=== PATIENT | female | born 1955 | race Two or more races ===

== ENCOUNTER → 2021-01-27 | Day surgery (SDC) | payer OTHER ==
[2021-01-25 10:23] LABS: Basophils # (auto) 0.1 10 ^3/uL (0-0.2); Basophils % (auto) 0.8 % (0.0-2.0); Eosinophils # (auto) 0.2 10 ^3/uL (0-0.8); Eosinophils % (auto) 2.8 % (0.0-7.0); Hematocrit 40.9 % (36.0-46.0); Hemoglobin 13.8 g/dL (12.2-16.2); Lymphocytes # (auto) 1.8 10 ^3/uL (0.4-5.4); Lymphocytes % (auto) 22.6 % (10.0-50.0); Mean Corpuscular Hemoglobin 29.6 pg (28.0-32.0); Mean Corpuscular Hgb Conc. 33.8 g/dL (32.0-36.0); Mean Corpuscular Volume 87.4 fL (80.0-100.0); Monocytes # (auto) 0.7 10 ^3/uL (0-1.3); Monocytes % (auto) 8.9 % (0.0-12.0); Neutrophils # (auto) 5.1 10 ^3/uL (1.6-8.6); Neutrophils % (auto) 64.9 % (37.0-80.0); Red Blood Cells 4.68 10^6/uL (4.0-5.20); Red Cell Distribution Width 13.7 % (11.8-14.3); White Blood Cell 7.8 10^3/uL (4.4-10.8)
[2021-01-25 11:26] LABS: Calcium 8.8 mg/dL (8.5-10.1); Potassium 4.3 mmol/L (3.5-5.1)
[2021-01-25 11:31] LABS: Albumin 3.5 g/dL (3.4-5.0); BUN/Creatinine Ratio 21.2; Bilirubin, Total 0.4 mg/dL (0.2-1.0); Total Protein 7.3 g/dL (6.4-8.2)
[~2021-01-27] VITALS: Ht 180.3 cm; Wt 109.8 kg
[~2021-01-27] MED LIST: FAMO20TA10 PO
[2021-01-27] MEDS: fentaNYL CITRATE 100 MCG/2 ML VL ONE ×3 (13:39→13:45)
[2021-01-27] MEDS: MIDAZOLAM HCL 5 MG/ML-1ML VIAL ONE ×4 (13:39→13:52)
[2021-01-27] MEDS: diphenhdrAMINE HCL 50 MG/1 ML VL ONE ×2 (13:39→13:45)
[2021-01-27 15:00] VITALS: BP 133/67
== END | disposition home or self-care (01) ==
LOC: GI 12:31
PROVIDERS: ATTEND Internal Medicine Gastroenterology
DX: R19.4 Change in bowel habit (principal); D12.2 Benign neoplasm of ascending colon; K57.30 Diverticulosis of large intestine without perforation or abscess without bleeding; K64.8 Other hemorrhoids; K21.9 Gastro-esophageal reflux disease without esophagitis; M62.89 Other specified disorders of muscle; Z87.891 Personal history of nicotine dependence; Z90.89 Acquired absence of other organs; Z98.890 Other specified postprocedural states; Z88.0 Allergy status to penicillin
CPT/HCPCS: 36415; 45385; 80053; 85025; 88305; J1200; J2250; J3010; J7030; U0003; 99152

== ENCOUNTER → 2024-04-02 | Outpatient (CLI) | payer BC ==
[2024-04-02 07:24] LABS: Basophils # (auto) 0.1 10 ^3/uL (0-0.2); Basophils % (auto) 0.9 % (0.0-2.0); Eosinophils # (auto) 0.2 10 ^3/uL (0-0.8); Eosinophils % (auto) 3.2 % (0.0-7.0); Hematocrit 43.7 % (36.0-46.0); Hemoglobin 14.3 g/dL (12.2-16.2); Lymphocytes # (auto) 1.5 10 ^3/uL (0.4-5.4); Lymphocytes % (auto) 21.6 % (10.0-50.0); Mean Corpuscular Hgb Conc. 32.7 g/dL (32.0-36.0); Mean Corpuscular Volume 85.6 fL (80.0-100.0); Monocytes # (auto) 0.7 10 ^3/uL (0-1.3); Monocytes % (auto) 9.7 % (0.0-12.0); Neutrophils # (auto) 4.5 10 ^3/uL (1.6-8.6); Neutrophils % (auto) 64.6 % (37.0-80.0); Platelet Count (auto) 282 10^3/uL (140-450); Red Cell Distribution Width 14.9 % (11.8-14.3)
[2024-04-02 07:34] LABS: Alanine Aminotransferase 18 U/L (7-40); Alkaline Phosphatase 75 U/L (46-116); Anion Gap 8 (5-15); BUN/Creatinine Ratio 12.4 (10.0-20.0); Blood Urea Nitrogen 11 mg/dL (9-23); Carbon Dioxide 27 mmol/L (20-31); Chloride 106 mmol/L (98-107); Glucose 103 mg/dL (74-106); Potassium 4.1 mmol/L (3.5-5.1); Sodium 141 mmol/L (136-145)
[2024-04-02 07:35] LABS: Albumin 4.6 g/dL (3.2-4.8); Aspartate Aminotransferase 17 U/L (13-40)
[2024-04-02 07:36] LABS: Bilirubin, Total 0.7 mg/dL (0.2-1.0); Total Protein 7.5 g/dL (5.7-8.2)
[2024-04-02 07:38] LABS: Calcium 10.5 mg/dL (8.7-10.4)
[2024-04-02 07:52] LABS: Triglycerides 107 mg/dL (< 150)
[2024-04-02 07:54] LABS: Cholesterol 162 mg/dL (< 200)
[2024-04-02 07:55] LABS: HDL Cholesterol 43 mg/dL (40-59)
[2024-04-02 08:09] LABS: LDL Cholesterol 114 mg/dL (< 100)
== END | disposition home or self-care (01) ==
LOC: LAB 06:25
PROVIDERS: ATTEND Nurse Practitioner Family
DX: Z00.01 Encounter for general adult medical examination with abnormal findings (principal); I10 Essential (primary) hypertension; E66.9 Obesity, unspecified
CPT/HCPCS: 36415; 80053; 80061; 82306; 84443; 85025

== ENCOUNTER 2024-05-18 08:56 | Inpatient (IN) | payer BC, OTHER ==
[~2024-05-18] VITALS: Ht 180.3 cm; Wt 123.4 kg
--- NOTE | 2024-05-18 09:35 | ED.PDOC ---
SOB-HPI HPI Comments A 68 YEAR OLD FEMALE PRESENTS TO THE ED WITH COMPLAINT OF SHORTNESS OF BREATH. PATIENT STATES SHE HAS BEEN EXPERIENCING SHORTNESS OF BREATH OFF AND ON FOR THE PAST 3 MONTHS, AND NOTES SHE WAS RECENTLY DIAGNOSED WITH A FIB ON 04/26/2024 IS CURRENTLY TAKING ELIQUIS 5MG. PATIENT REPORTS HER SYMPTOMS HAVE BEEN WORSE OVER THE LAST 2 WEEKS, PROMPTING HER TO COME TO THE ED TODAY FOR EVALUATION. PATIENT ALSO NOTES THAT SHE RECENTLY HAD AN ECHOCARDIOGRAM DONE, BUT IS AWAITING RESULTS AT THIS TIME. PATIENT DENIES FEVER, CHILLS, CHEST PAIN, ABDOMINAL PAIN, NAUSEA, VOMITING, HEADACHE, OR OTHER COMPLAINTS. NO OTHER SYMPTOMS OR MODIFYING FACTORS AT THIS TIME. PATIENT IS ALERT, ORIENTED X 4, AND HAS STEADY GAIT. Chief Complaint: Shortness of Breath Time Seen by MD: 08:58 Primary Care Provider: Jamal Reviewed notes: Nurses Notes, Medications, Allergies Information Source: Patient Mode of Arrival: Wheelchair Severity: Moderate Timing: Months Duration: Intermittent Context: Spontaneous Onset PE Risk Factors: None History of: Other (AFIB) Prehospital treatment: None Modifying Factors: Nothing Associated Signs and Symptoms: Other (DYSPNEA) Past Medical History PAST MEDICAL HISTORY: AFIB Surgical History: Denies all surgeries AREA SALES MANAGER History: No Pertinent AREA SALES MANAGER History Family History Family History: Reviewed,noncontributory to illness Social History Smoker: Non-Smoker Alcohol: Denies ETOH Use Drugs: Denies Drug Use Lives In: Home Constitutional: denies: chills, diaphoresis, fatigue, fever, malaise, sweats, weakness, others EENTM: denies: blurred vision, double vision, ear bleeding, ear discharge, ear drainage, ear pain, ear ringing, eye pain, eye redness, hearing loss, mouth pain, mouth swelling, nasal discharge, nose bleeding, nose congestion, nose pain, photophobia, tearing, throat pain, throat swelling, voice changes, others Respiratory: reports: shortness of breath; denies: cough, hemoptysis, orthopnea, SOB at rest, SOB with excertion, stridor, wheezing, others Cardiovascular: denies: chest pain, dizzy spells, diaphoresis, Dyspnea on exertion, edema, irregular heart beat, left arm pain, lightheadedness, palpitations, PND, syncope, others Gastrointestinal: denies: abdomen distended, abdominal pain, blood streaked bowels, constipated, diarrhea, dysphagia, difficulty swallowing, hematemesis, melena, nausea, poor appetite, poor fluid intake, rectal bleeding, rectal pain, vomiting, others Genitourinary: denies: abnormal vagina bleeding, burning, dyspareunia, dysuria, flank pain, frequency, hematuria, incontinence, pain, , vagina discharge, urgency, others Neurological: denies: dizziness, fainting, headache, left sided numbness, left sided weakness, numbness, paresthesia, pre-existing deficit, right sided numbness, right sided weakness, seizure, speech problems, tingling, tremors, weakness, others Musculoskeletal: denies: back pain, gout, joint pain, joint swelling, muscle pain, muscle stiffness, neck pain, others Integumetry: denies: bruises, change in color, change in hair/nails, dryness, laceration, lesions, lumps, rash, wounds, others Allergic/Immunocompromised: denies: Difficulty Healing, Frequent Infections, Hives, Itching, others Hematologic/Lymphatic: denies: anemia, blood clots, easy bleeding, easy bruising, swollen glands, others Endocrine: denies: excessive hunger, excessive sweating, excessive thirst, excessive urination, flushing, intolerance to cold, intolerance to heat, unexplained weight gain, unexplained weight loss, others Psychiatric: denies: anxiety, bipolar disorder, depression, hopeless, panic disorder, schizophrenia, sleepless, suicidal, others All Other Systems: Reviewed and Negative Physical Exam General Appearance: No Apparent Distress, Obese HEENT: Normal ENT Inspection, PERRL/EOMI, Pharynx Normal, TMs Normal Neck: Full Range of Motion, Non-Tender, Normal, Normal Inspection Respiratory: Chest Non-Tender, Crackles, Decreased Breath Sounds, No Accessory Muscle Use, No Respiratory Distress Cardiovascular: No Edema, No JVD, No Murmur, No Gallop, Normal Peripheral Pulses, Regular Rate/Rhythm Breast Exam: Deferred Gastrointestinal: No Organomegaly, Non Tender, No Pulsatile Mass, Normal Bowel Sounds, Soft Genitalia: Deferred Pelvic: Deferred Rectal: Deferred Extremities: No calf tenderness, Normal capillary refill, Normal inspection, Normal range of motion, Non-tender, Pedal edema (1+ BILATERAL ANKLE. 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 Was a procedure done?: No Differential Dx Differential Diagnosis: CHF, Myocardial infarction, Pneumonia, Pulmonary Embolism, URI, Other (AFIB) X-Ray, Labs, Meds, VS Vital Signs Date Time Temp Pulse Resp B/P (MAP) Pulse Ox O2 Delivery O2 Flow Rate FiO2 05/18/24 12:50 131/100 05/18/24 12:44 18 95 Room Air* 0 21 05/18/24 11:37 157/96 (116) 05/18/24 11:16 97.7 90 16 160/115 (130) 95 97.7 05/18/24 10:25 87 154/111 05/18/24 09:43 105 16 161/98 (119) 97 05/18/24 09:35 124 05/18/24 09:18 98.3 139 16 163/94 (117) 97 98.3 05/18/24 09:18 139 16 97 Room Air 05/18/24 09:08 124 05/18/24 09:03 98.3 139 16 163/94 (117) 97 98.3 Lab Test 05/18/24 10:20 05/18/24 09:22 Range/Units Troponin I High Sensitivity 14 14 </=34 ng/L White Blood Count 8.8 4.4-10.8 10^3/uL Red Blood Count 4.75 4.0-5.20 10^6/uL Hemoglobin 13.5 12.2-16.2 g/dL Hematocrit 40.6 36.0-46.0 % Mean Corpuscular Volume 85.5 80.0-100.0 fL Mean Corpuscular Hemoglobin 28.4 28.0-32.0 pg Mean Corpuscular Hemoglobin Concent 33.2 32.0-36.0 g/dL Red Cell Distribution Width 15.2 H 11.8-14.3 % Platelet Count 255 140-450 10^3/uL Mean Platelet Volume 8.2 6.9-10.8 fL Neutrophils (%) (Auto) 81.0 H 37.0-80.0 % Lymphocytes (%) (Auto) 10.3 10.0-50.0 % Monocytes (%) (Auto) 6.8 0.0-12.0 % Eosinophils (%) (Auto) 1.3 0.0-7.0 % Basophils (%) (Auto) 0.6 0.0-2.0 % Neutrophils # (Auto) 7.1 1.6-8.6 10 ^3/uL Lymphocytes # (Auto) 0.9 0.4-5.4 10 ^3/uL Monocytes # (Auto) 0.6 0-1.3 10 ^3/uL Eosinophils # (Auto) 0.1 0-0.8 10 ^3/uL Basophils # (Auto) 0.1 0-0.2 10 ^3/uL Nucleated Red Blood Cells 0.1 % Prothrombin Time 11.4 9.3-11.8 sec Prothrombin Time INR 1.08 0.9-1.15 D-Dimer, Quantitative 1.71 H 0.0-0.49 mg/L FEU Sodium Level 141 136-145 mmol/L Potassium Level 4.2 3.5-5.1 mmol/L Chloride Level 108 H 98-107 mmol/L Carbon Dioxide Level 23 20-31 mmol/L Anion Gap 10 5-15 Blood Urea Nitrogen 15 9-23 mg/dL Creatinine 0.80 0.550-1.02 mg/dL Glomerular Filtration Rate Calc 81 >90 mL/min BUN/Creatinine Ratio 18.8 10.0-20.0 Serum Glucose 114 H 74-106 mg/dL Calcium Level 9.8 8.7-10.4 mg/dL Total Bilirubin 1.1 H 0.2-1.0 mg/dL Aspartate Amino Transferase (AST) 22 13-40 U/L Alanine Aminotransferase (ALT) < 9 7-40 U/L Alkaline Phosphatase 64 46-116 U/L B-Type Natriuretic Peptide 311.15 0-100 pg/mL Total Protein 7.0 5.7-8.2 g/dL Albumin 4.5 3.2-4.8 g/dL Thyroid Stimulating Hormone (TSH) 3.89 0.55-4.78 uIU/mL Current Medications Medications (Trade) Dose Ordered Sig/Vishnu Route Start Time Stop Time Status Last Admin Furosemide (Lasix Injection) 40 mg ONCE ONCE IV 05/18/24 11:45 05/18/24 11:46 DC 05/18/24 12:50 EXAM: XR Chest, 1 View CLINICAL INDICATION: SOB TECHNIQUE: Frontal view of the chest. COMPARISON: None FINDINGS: LUNGS AND PLEURAL SPACES: See below. HEART: Cardiomegaly with pulmonary congestion and edema. Superimposed pneumonia cannot be excluded. MEDIASTINUM: Unremarkable. Normal mediastinal contour. BONES/JOINTS: Unremarkable. No acute fracture. OTHER FINDINGS: . IMPRESSION: Cardiomegaly with pulmonary congestion and edema. Superimposed pneumonia cannot be excluded. ATED BY: INDRA HANCOCK MD DICTATED DATE/TIME: 05/18/24 1024 SIGNED BY: INDRA HANCOCK MD SIGNED DATE/TIME: 05/18/24 1024 CC: CT CT ANGIO CHEST CONTRAST INDICATION: SOB, ELEVATED D-DIMER EXAM DATE: 05/18/2024 10:53 AM COMPARISON: None RADIATION DOSE: CTDIvol: 32.56 mGy, DLP: 1098.73 mGy*cm PROCEDURE: Helical CT angiographic images were obtained of the chest with intravenous contrast. Sagittal and coronal reconstructions as well as MIPS are provided. Maximum intensity projections performed (MIPs) were performed for CTA. ADDITIONAL IMAGES / REFORMATS: None All CT scans at this medical facility are performed using dose modulation techniques as appropriate to a performed exam including the following: Automated exposure control was utilized; adjustment of the MA and/or KV according to patient size; and use of iterative reconstruction technique. FINDINGS: Bones: Scattered degenerative changes are noted in the visualized osseous structures. Visualized Abdomen: Normal. Chest Wall: Normal. Soft tissues: Normal. Mediastinum: Normal. Heart: Enlarged Vessels: No filling defects in the visualized pulmonary arteries including the segmental and subsegmental pulmonary arteries. Lymph Nodes: Normal. Pleura: Small right pleural effusion. Airways: Normal. Lung: Mosaic lung attenuation. Other: None IMPRESSION: No pulmonary embolism in the visualized pulmonary arteries including the segmental and subsegmental pulmonary arteries. Cardiomegaly. ATED BY: KOSTAS MAJOR MD DICTATED DATE/TIME: 05/18/241128 SIGNED BY: KOSTAS MAJOR MD SIGNED DATE/TIME: 05/18/241128 CC: X-Ray, Labs, Meds, VS Comment EXTERNAL MEDICAL RECORDS REVIEWED: [NONE] INDEPENDENT HISTORIANS: [NONE] SOCIAL DETERMINANTS OF HEALTH: [NONE] LABS ORDERED: CBC, BMP, BNP, D-DIMER, TROPONIN, PT INR, TSH REVIEWED AND INTERPRETED RESULTS: D-DIMER 1.71, BNP 311.15 IMAGING ORDERED: XR CHEST, CT ANGIO CHEST W-IV CONTRAST TREATMENTS ORDERED: LOPRESSOR 5MG IV, LASIX 40 MG IV PROCEDURES PERFORMED: NONE CRITICAL CARE TIME: NONE I HAVE DISCUSSED THE PATIENT WITH THE ATTENDING PHYSICIAN DR. VENCES AND HE AGREES WITH THE PATIENT'S PLAN OF CARE. UPON MY PHYSICAL EXAMINATION, CRACKLES AND DIMINISHED BREATH SOUNDS WERE HEARD UPON AUSCULTATION AND THE PATIENT HAD 1+ PEDAL EDEMA NOTED, BUT WORSEN NOW ACUTE RESPIRATORY DISTRESS AT THIS TIME. MY DIFFERENTIAL DIAGNOSIS INCLUDES, CHF, PE, DYSPNEA, ATRIAL FIBRILLATION, URI, PNEUMONIA, AORTIC ANEURYSM. DUE TO THE PATIENT'S LABS REVEALING NEW ONSET CHF AND THE PATIENT'S EKG REVEALING ATRIAL FIBRILLATION, I HAVE DETERMINED THE PATIENT NEEDS TO BE ADMITTED FOR FURTHER T REATMENT AND EVALUATION. THE ON-CALL HOSPITALIST WILL BE CONTACTED FOR ADMISSION OF THIS PATIENT. Images Reviewed?: Images reviewed and evaluated by me Time of 1ST Reevaluation: 11:56 Reevaluation 1ST: Unchanged Patient Education/Counseling: Diagnosis, Treatment Family Education/Counseling: Diagnosis, Treatment Departure 1 Departure Time of Disposition: 11:56 Impression: Primary Impression: Dyspnea Qualified Codes: R06.02 - Shortness of breath Additional Impressions: Atrial fibrillation Qualified Codes: I48.19 - Other persistent atrial fibrillation New onset of congestive heart failure Hypertension Qualified Codes: I10 - Essential (primary) hypertension Disposition: 09 ADMITTED INPATIENT Condition: Serious Critical Care Note Critical Care Time?: No Stability Stability form required: Yes Unstable for transfer: Requires medication, ED Physician Assesment, Possible rapid decline Heart Score Heart Score: Heart Score Response (Comments) Value History Slightly Suspicious 0 EKG N/A 0 Age >65 2 Risk Factors 1 or 2 risk factors 1 Troponin Normal limit 0 Total 3 I personally scribed for DELISA CASAS ([email or web address]) on 05/18/24 at 09:35. Electron ically submitted by Moose Mandujano ([email or web address]). I personally scribed for DELISA CASAS ([email or web address]) on 05/18/24 at 11:41. Electronically submitted by Moose Mandujano ([email or web address]). DELISA CASAS May 18, 2024 09:35
--- NOTE | 2024-05-18 09:42 | ECG ---
[facility] Test Date: 2024-05-18 Test Time: 09:08:09 Pat Name: RAFA SPANN Department: ER Room: [address] [place] [address] Gender: F Collision Estimator: BISHOP : 1955 Requested By: DELISA CASAS Order Number: [id number] Reading MD: John Link Measurements Intervals [place] Rate: 124 P: 0 WI: 0 QRS: -24 QRSD: 88 T: 62 QT: 321 QTc: 461 Interpretive Statements Atrial fibrillation Borderline left axis deviation Low voltage, extremity and precordial leads Consider anterior infarct Electronically Signed On 05-18-2024 17:46:36 PDT by John Link Please click the below link to view image of tracing.
[2024-05-18 09:51] LABS: Basophils # (auto) 0.1 10 ^3/uL (0-0.2); Basophils % (auto) 0.6 % (0.0-2.0); Eosinophils # (auto) 0.1 10 ^3/uL (0-0.8); Eosinophils % (auto) 1.3 % (0.0-7.0); Hematocrit 40.6 % (36.0-46.0); Hemoglobin 13.5 g/dL (12.2-16.2); Lymphocytes # (auto) 0.9 10 ^3/uL (0.4-5.4); Lymphocytes % (auto) 10.3 % (10.0-50.0); Mean Corpuscular Hemoglobin 28.4 pg (28.0-32.0); Mean Corpuscular Hgb Conc. 33.2 g/dL (32.0-36.0); Mean Corpuscular Volume 85.5 fL (80.0-100.0); Monocytes # (auto) 0.6 10 ^3/uL (0-1.3); Monocytes % (auto) 6.8 % (0.0-12.0); Neutrophils # (auto) 7.1 10 ^3/uL (1.6-8.6); Nucleated Red Blood Cells % 0.1 %; Platelet Count (auto) 255 10^3/uL (140-450); Red Blood Cells 4.75 10^6/uL (4.0-5.20); Red Cell Distribution Width 15.2 % (11.8-14.3); White Blood Cell 8.8 10^3/uL (4.4-10.8)
[2024-05-18 10:05] LABS: INR 1.08 (0.9-1.15); Prothrombin Time 11.4 sec (9.3-11.8)
[2024-05-18 10:13] LABS: Albumin 4.5 g/dL (3.2-4.8); Alkaline Phosphatase 64 U/L (46-116); Anion Gap 10 (5-15); Aspartate Aminotransferase 22 U/L (13-40); BUN/Creatinine Ratio 18.8 (10.0-20.0); Blood Urea Nitrogen 15 mg/dL (9-23); Calcium 9.8 mg/dL (8.7-10.4); Carbon Dioxide 23 mmol/L (20-31); Potassium 4.2 mmol/L (3.5-5.1); Sodium 141 mmol/L (136-145)
[2024-05-18 10:14] LABS: Bilirubin, Total 1.1 mg/dL (0.2-1.0)
[2024-05-18 10:24] LABS: Alanine Aminotransferase < 9 U/L (7-40); Chloride 108 mmol/L (98-107); Glucose 114 mg/dL (74-106)
[2024-05-18] MEDS: METOPROLOL TARTRATE 1MG/1ML-5ML VIAL IV ONE (10:25)
--- NOTE | 2024-05-18 10:27 | DVH ---
EXAM: XR Chest, 1 View CLINICAL INDICATION: SOB TECHNIQUE: Frontal view of the chest. COMPARISON: None FINDINGS: LUNGS AND PLEURAL SPACES: See below. HEART: Cardiomegaly with pulmonary congestion and edema. Superimposed pneumonia cannot be excluded. MEDIASTINUM: Unremarkable. Normal mediastinal contour. BONES/JOINTS: Unremarkable. No acute fracture. OTHER FINDINGS: . IMPRESSION: Cardiomegaly with pulmonary congestion and edema. Superimposed pneumonia cannot be excluded.
[2024-05-18] MEDS: IOHEXOL 350 MG/ML 100ML IJ ONE (11:01)
--- NOTE | 2024-05-18 11:31 | DVH ---
CT CT ANGIO CHEST CONTRAST INDICATION: SOB, ELEVATED D-DIMER EXAM DATE: 05/18/2024 10:53 AM COMPARISON: None RADIATION DOSE: CTDIvol: 32.56 mGy, DLP: 1098.73 mGy*cm PROCEDURE: Helical CT angiographic images were obtained of the chest with intravenous contrast. Sagi ttal and coronal reconstructions as well as MIPS are provided. Maximum intensity projections performe d (MIPs) were performed for CTA. ADDITIONAL IMAGES / REFORMATS: None All CT scans at this medical facility are performed using dose modulation techniques as appropriate t o a performed exam including the following: Automated exposure control was utilized; adjustment of th e MA and/or KV according to patient size; and use of iterative reconstruction technique. FINDINGS: Bones: Scattered degenerative changes are noted in the visualized osseous structures. Visualized Abdomen: Normal. Chest Wall: Normal. Soft tissues: Normal. Mediastinum: Normal. Heart: Enlarged Vessels: No filling defects in the visualized pulmonary arteries including the segmental and subsegme ntal pulmonary arteries. Lymph Nodes: Normal. Pleura: Small right pleural effusion. Airways: Normal. Lung: Mosaic lung attenuation. Other: None IMPRESSION: No pulmonary embolism in the visualized pulmonary arteries including the segmental and subsegmental p ulmonary arteries. Cardiomegaly.
[2024-05-18 12:44] VITALS: RESP 18; O2SAT 95
[2024-05-18] MEDS: FUROSEMIDE 40 MG/4 ML VIAL IV ONE (12:50)
[2024-05-18] MEDS ORDERED: ONDANSETRON HCL 4 MG/2 ML VIAL IV PRN (13:15)
[2024-05-18] MEDS ORDERED: APIX5TAB PO (13:32)
[2024-05-18] MEDS: cefTRIAXone 1GM/50ML D5W 50 ML IV ONE (13:55)
--- NOTE | 2024-05-18 14:05 | DVHHP2 ---
History of Present Illness Reason for Visit: Shortness of breath History of Present Illness Dulce Holguin is a 68-year-old female with past medical history of AFib on Eliquis, obesity, and colonoscopy who presents to the ED with shortness of breath x1 month. Patient states that she recently had an echo done on May 01, 2024 and was supposed to see her PCP on June 11 coming up for the results. Patient did report that the APPRENTICE EMBALMER of the PCP of the family practice office stated that she has a new onset of heart failure. Patient reports that she has been getting short of breath with minimal exertion such as minimal walks to the bathroom about 15 ft or so and getting up out of bed. Patient reports that she was given Eliquis to take for her AFib. Patient denies any chest pain, fever or chills, recent sick contacts, recent trauma or injury, lightheadedness, dizziness, abdominal pain, nausea, vomiting, or diarrhea. Cardiovascular: AFIB Past Surgical History: Other (Colonoscopy) Family History: Other (Mom with ovarian cancer and dad with lung cancer both ) Smoke: No ALCOHOL: none Drugs: None Lives: with Family Domestic Violence: Neg Review of Systems Respiratory: Shortness of breath Allergies: Coded Allergies: Penicillins (Unverified Allergy, Unknown, rash, 01/25/21) Exam Vital Signs Vital Signs Date Time Temp Pulse Resp B/P (MAP) Pulse Ox O2 Delivery O2 Flow Rate FiO2 05/18/24 12:50 131/100 05/18/24 12:44 18 95 Room Air* 0 21 05/18/24 11:16 97.7 90 97.7 General Appearance: Alert, Oriented X3, Cooperative, No acute distress HEENT: Atraumatic, PERRLA, EOMI, Mucous membr. moist/pink Respiratory: Normal air movement Cardiovascular: Normal S1, Normal S2, No murmurs Abdominal: Soft Extremities: Normal pulses Neuro: Normal speech, Normal tone, Sensation intact Psych/Mental Status: Mental status NL, Mood NL Labs/Xrays Labs Test 05/18/24 10:20 05/18/24 09:22 Range/Units Troponin I High Sensitivity 14 </=34 ng/L White Blood Count 8.8 4.4-10.8 10^3/uL Red Blood Count 4.75 4.0-5.20 10^6/uL Hemoglobin 13.5 12.2-16.2 g/dL Hematocrit 40.6 36.0-46.0 % Mean Corpuscular Volume 85.5 80.0-100.0 fL Mean Corpuscular Hemoglobin 28.4 28.0-32.0 pg Mean Corpuscular Hemoglobin Concent 33.2 32.0-36.0 g/dL Red Cell Distribution Width 15.2 H 11.8-14.3 % Platelet Count 255 140-450 10^3/uL Mean Platelet Volume 8.2 6.9-10.8 fL Neutrophils (%) (Auto) 81.0 H 37.0-80.0 % Lymphocytes (%) (Auto) 10.3 10.0-50.0 % Monocytes (%) (Auto) 6.8 0.0-12.0 % Eosinophils (%) (Auto) 1.3 0.0-7.0 % Basophils (%) (Auto) 0.6 0.0-2.0 % Neutrophils # (Auto) 7.1 1.6-8.6 10 ^3/uL Lymphocytes # (Auto) 0.9 0.4-5.4 10 ^3/uL Monocytes # (Auto) 0.6 0-1.3 10 ^3/uL Eosinophils # (Auto) 0.1 0-0.8 10 ^3/uL Basophils # (Auto) 0.1 0-0.2 10 ^3/uL Nucleated Red Blood Cells 0.1 % Prothrombin Time 11.4 9.3-11.8 sec Prothrombin Time INR 1.08 0.9-1.15 D-Dimer, Quantitative 1.71 H 0.0-0.49 mg/L FEU Sodium Level 141 136-145 mmol/L Potassium Level 4.2 3.5-5.1 mmol/L Chloride Level 108 H 98-107 mmol/L Carbon Dioxide Level 23 20-31 mmol/L Anion Gap 10 5-15 Blood Urea Nitrogen 15 9-23 mg/dL Creatinine 0.80 0.550-1.02 mg/dL Glomerular Filtration Rate Calc 81 >90 mL/min BUN/Creatinine Ratio 18.8 10.0-20.0 Serum Glucose 114 H 74-106 mg/dL Calcium Level 9.8 8.7-10.4 mg/dL Total Bilirubin 1.1 H 0.2-1.0 mg/dL Aspartate Amino Transferase (AST) 22 13-40 U/L Alanine Aminotransferase (ALT) < 9 7-40 U/L Alkaline Phosphatase 64 46-116 U/L B-Type Natriuretic Peptide 311.15 0-100 pg/mL Total Protein 7.0 5.7-8.2 g/dL Albumin 4.5 3.2-4.8 g/dL Thyroid Stimulating Hormone (TSH) 3.89 0.55-4.78 uIU/mL CT CT ANGIO CHEST CONTRAST INDICATION: SOB, ELEVATED D-DIMER EXAM DATE: 05/18/2024 10:53 AM COMPARISON: None RADIATION DOSE: CTDIvol: 32.56 mGy, DLP: 1098.73 mGy*cm PROCEDURE: Helical CT angiographic images were obtained of the chest with intravenous contrast. Sagittal and coronal reconstructions as well as MIPS are provided. Maximum intensity projections performed (MIPs) were performed for CTA. ADDITIONAL IMAGES / REFORMATS: None All CT scans at this medical facility are performed using dose modulation techniques as appropriate to a performed exam including the following: Automated exposure control was utilized; adjustment of the MA and/or KV according to brandon ent size; and use of iterative reconstruction technique. FINDINGS: Bones: Scattered degenerative changes are noted in the visualized osseous structures. Visualized Abdomen: Normal. Chest Wall: Normal. Soft tissues: Normal. Mediastinum: Normal. Heart: Enlarged Vessels: No filling defects in the visualized pulmonary arteries including the segmental and subsegmental pulmonary arteries. Lymph Nodes: Normal. Pleura: Small right pleural effusion. Airways: Normal. Lung: Mosaic lung attenuation. Other: None IMPRESSION: No pulmonary embolism in the visualized pulmonary arteries including the segmental and subsegmental pulmonary arteries. Cardiomegaly. EXAM: XR Chest, 1 View CLINICAL INDICATION: SOB TECHNIQUE: Frontal view of the chest. COMPARISON: None FINDINGS: LUNGS AND PLEURAL SPACES: See below. HEART: Cardiomegaly with pulmonary congestion and edema. Superimposed pneumonia cannot be excluded. MEDIASTINUM: Unremarkable. Normal mediastinal contour. BONES/JOINTS: Unremarkable. No acute fracture. OTHER FINDINGS: . IMPRESSION: Cardiomegaly with pulmonary congestion and edema. Superimposed pneumonia cannot be excluded. Assessment/Plan Assessment/Plan Assessment Dyspnea Acute heart failure Probable pneumonia Cardiomegaly Obesity Hyperbilirubinemia History of AFib on Eliquis Plan Admit to med surge CTA chest noted Diuretics given ED Beta blockers PT INR Chest x-ray noted TSH noted D-dimer EKG Troponin negative x2 BNP IV antibiotics-ceftriaxone Cardiology consult for new onset of heart failure Diet Echo done on 05/01/2024 EF 25-30% Home medications reconciled DVT prophylaxis patient on Eliquis PUD prophylaxis not indicated no history of GERD or GI bleed Counseled patient on lifestyle modifications, diet, and exercise Plan discussed with: Patient, Other (Sister) My Orders Orders - SUE TYSON Procedure Category Date Status Time Ceftriaxone Ivpb PHA 05/19/24 Verified Rocephin 09:00 Ceftriaxone Ivpb PHA 05/18/24 Verified Rocephin 13:15 * Cardiology Consult CONS 05/18/24 Verified 13:14 Strict I & O LEO 05/18/24 Verified 13:14 Daily Weight LEO 05/18/24 Verified 13:14 Admit ADMIT 05/18/24 Verified 13:14 Allergies LEO 05/18/24 Verified 13:14 Code Status CODE 05/18/24 Verified 13:14 Ondansetron Hcl PHA 05/18/24 Verified (Zofran) 13:15 Date of Service: May 18, 2024 Billing Provider: SUE TYSON Common Visit Codes: [id number] INP/OBS CARE (HIGH) SUE TYSON May 18, 2024 14:05
[2024-05-18 18:07] VITALS: PULSE 90; RESP 20; O2SAT 96
[2024-05-18 18:49] VITALS: BP 141/96; PULSE 81; RESP 21; TEMP 98.6; O2SAT 100
[2024-05-18 18:50] VITALS: BP 151/91; PULSE 93; RESP 17; TEMP 97.1; O2SAT 98
[2024-05-18 20:00] VITALS: PULSE 103
[2024-05-18] MEDS ORDERED: NITROGLYCERIN 0.4 MG SL TAB SL PRN (20:00)
[2024-05-18] MEDS ORDERED: hydrALAZINE HCL 20 MG/ML VL IV PRN (20:00)
[2024-05-18] MEDS ORDERED: MORPHINE SULFATE INJ 2 MG/ml SYRG IV PRN (20:00)
--- NOTE | 2024-05-18 20:19 | DVHINCON2 ---
Date Seen: May 18, 2024 Referring Physician JOSÉ MIGUEL Emmanuel Reason for Consultation New onset heart failure History of Present Illness This is a pleasant 68-year-old female who presented to emergency room with a chief complaint of shortness of breath for three days. The patient complains of progressive shortness of breath associated with PND, orthopnea, and HOPPER. She also complains of left-sided pressure radiating to her back, associated with palpitations, and intermittent since November,. Denies lower extremity edema, diaphoresis, or syncopal events. Reports she was recently diagnosed with atrial fibrillation by her PCP on 05/01/2024. At that time, she was referred for an outpatient transthoracic echocardiogram which was completed and revealed an ejection fraction of about 25-30% with global hypokinesis, biatrial enlargement, and mild left ventricular enlargement. She has a scheduled initial appointment with our Cardiology Office on 06/11/2024. A 12 lead electrocardiogram revealed an atrial fibrillation rhythm with rapid ventricular rate at 124 bpm. Serial troponin levels are negative. Denies family history for cardiovascular disease. Significant medical history includes dyslipidemia, hiatal hernia, GERD, remote history of tobacco use including 2.5 pack-years, and morbid obesity. Past Medical History Past medical history reviewed. No other significant than mentioned above. Past Surgical History Colonoscopy with snare polypectomy Family History Family history reviewed. Not significant for cardiovascular disease. Social History Denies the use of illicit drugs or tobacco use. Admits to rarely alcohol use. Reports a remote history of tobacco use. Reports a remote history of cannabinoid use. Allergies: Coded Allergies: Penicillins (Unverified Allergy, Unknown, rash, 01/25/21) Home Meds Reported Medications Apixaban Base (ELIQUIS) 5 Mg Tab, 1 TAB PO BID 05/18/24 Famotidine (PEPCID TABLET) 20 Mg Tb, 1 TAB PO BID, #60 TAB 5 Refills 01/25/21 Home Meds Home medications reviewed. Current Medications Current Medications Medications (Trade) Dose Ordered Sig/Vishnu Route PRN Reason Start Time Stop Time Status Last Admin Ceftriaxone Sodium 50 ml @ 100 mls/hr DAILY@09 IV 05/19/24 09:00 Ondansetron HCl (Zofran) 4 mg Q4HP PRN IV NAUSEA / VOMITING 05/18/24 13:15 Acetaminophen (Tylenol Tablet) 650 mg Q6HP PRN PO PAIN SCALE 1-3 OR TEMP>100.4 05/18/24 13:15 Famotidine (Pepcid Tablet) 20 mg BID PO 05/18/24 22:00 Apixaban (Eliquis) 5 mg BID PO 05/18/24 22:00 Review of Systems Constitutional: No symptom reported Ears, Nose, & Throat: No symptom reported Eyes: No symptom reported Neurological: No symptoms reported Pulmonary/Respiratory: SOB, HOPPER, PND, orthopnea Cardiovascular: Chest pain, palpitations Gastrointestinal: No symptom reported Genitourinary: No symptom reported Musculoskeletal: No symptom reported Skin: No symptom reported Psychiatric: No symptom reported Endocrine: No symptom reported Hemotologic/Lymphatic: No symptom reported Vital Signs Vital Signs Date Time Temp Pulse Resp B/P (MAP) Pulse Ox O2 Delivery O2 Flow Rate FiO2 05/18/24 18:49 98.6 81 21 141/96 (111) 100 98.6 05/18/24 18:49 Nasal Cannula* 2 28 Physical Exam General Appearance: Cooperative. Well developed. Morbidly obese. Moderate acute respiratory distress Head Exam: Normal inspection Neck Exam: Normal inspection. Non-tender. Normal alignment Pulmonary/Respiratory: Chest non-tender. Diffuse crackles to bilateral breath sounds Cardiovascular/Chest: Irregularly irregular rate and rhythm. Atrial fibrillation, uncontrolled rate. No murmurs. + JVD. Peripheral Pulses: 2+ Radial (R). 2+ Radial (L). 2+ Pedal (R). 2+ Pedal (L) Abdominal Exam: Normal bowel sounds. Soft. Nontender. No hepatospenomegaly. No masses Ankle Exam: Negative ankle edema Lower extremities: Negative lower extremity edema Neuro/Mental Status: A&O x4. Coherent Thoughts/Psych: Normal thought pattern. Appropriate mood and affect. Good judgement and insight Appearance: Moderate acute respiratory distress Skin Exam: Normal inspection. Normal color. Warm. Dry Labs/Diagnostic Data Labs Test 05/18/24 10:20 05/18/24 09:22 Range/Units Troponin I High Sensitivity 14 </=34 ng/L White Blood Count 8.8 4.4-10.8 10^3/uL Red Blood Count 4.75 4.0-5.20 10^6/uL Hemoglobin 13.5 12.2-16.2 g/dL Hematocrit 40.6 36.0-46.0 % Mean Corpuscular Volume 85.5 80.0-100.0 fL Mean Corpuscular Hemoglobin 28.4 28.0-32.0 pg Mean Corpuscular Hemoglobin Concent 33.2 32.0-36.0 g/dL Red Cell Distribution Width 15.2 H 11.8-14.3 % Platelet Count 255 140-450 10^3/uL Mean Platelet Volume 8.2 6.9-10.8 fL Neutrophils (%) (Auto) 81.0 H 37.0-80.0 % Lymphocytes (%) (Auto) 10.3 10.0-50.0 % Monocytes (%) (Auto) 6.8 0.0-12.0 % Eosinophils (%) (Auto) 1.3 0.0-7.0 % Basophils (%) (Auto) 0.6 0.0-2.0 % Neutrophils # (Auto) 7.1 1.6-8.6 10 ^3/uL Lymphocytes # (Auto) 0.9 0.4-5.4 10 ^3/uL Monocytes # (Auto) 0.6 0-1.3 10 ^3/uL Eosinophils # (Auto) 0.1 0-0.8 10 ^3/uL Basophils # (Auto) 0.1 0-0.2 10 ^3/uL Nucleated Red Blood Cells 0.1 % Prothrombin Time 11.4 9.3-11.8 sec Prothrombin Time INR 1.08 0.9-1.15 D-Dimer, Quantitative 1.71 H 0.0-0.49 mg/L FEU Sodium Level 141 136-145 mmol/L Potassium Level 4.2 3.5-5.1 mmol/L Chloride Level 108 H 98-107 mmol/L Carbon Dioxide Level 23 20-31 mmol/L Anion Gap 10 5-15 Blood Urea Nitrogen 15 9-23 mg/dL Creatinine 0.80 0.550-1.02 mg/dL Glomerular Filtration Rate Calc 81 >90 mL/min BUN/Creatinine Ratio 18.8 10.0-20.0 Serum Glucose 114 H 74-106 mg/dL Calcium Level 9.8 8.7-10.4 mg/dL Total Bilirubin 1.1 H 0.2-1.0 mg/dL Aspartate Amino Transferase (AST) 22 13-40 U/L Alanine Aminotransferase (ALT) < 9 7-40 U/L Alkaline Phosphatase 64 46-116 U/L B-Type Natriuretic Peptide 311.15 0-100 pg/mL Total Protein 7.0 5.7-8.2 g/dL Albumin 4.5 3.2-4.8 g/dL Thyroid Stimulating Hormone (TSH) 3.89 0.55-4.78 uIU/mL Assessment Unspecified atrial fibrillation with rapid ventricular rate, newly diagnosed (on Eliquis) Acute on chronic decompensated HFrEF, newly diagnosed, NYHA Class IV Rule out coronary artery disease Hypertension, newly diagnosed Dyslipidemia Remote history of tobacco use Morbid obesity Plan/Recommendation (Dr. Link) Transthoracic echocardiogram from 05/02/2024 revealed LVEF 25-30% with global hypokinesis, normal RV function, biatrial enlargement, and mild LV enlargement. The patient also presents with newly diagnosed atrial fibrillation with RVR. She will be initiated on GDMT for HFrEF, uptitrate as tolerated. Initiate preload and afterload reduction, strict I&Os, fluid restriction, and daily weight. Transition from Eliquis therapy to therapeutic Lovenox ([id number] Score: 4 points. HAS-BLED Score: 2 points). Pending improvement on respiratory status, tentatively scheduled for cardiac catheterization and coronary angiogram for ischemic work-up on 05/22/2024. Monitor ECG changes closely and notify. Continue chest pain protocol. Upgrade to Telemetry. Thank you for allowing us to participate in this patient's care. Please call if you have any questions or concerns. This medical document was created using an electronic medical record system with voice recognition software and computerized dictation system. Although this document has been carefully reviewed, there might still be some phonetic and typographical errors. Occasional wrong-word or ``sound-alike substitutions may have occurred due to the inherent limitations of voice recognition software. These areas are purely typographical due to imperfections of the software programs and do not reflect any compromise in the patient's medical care. Please read the chart carefully and recognize, using context, where these substitutions have occurred. Plan discussed with: Patient, Other NYHA Physical activity limitations: Class4(Severe)discomfort (w any activit,symptoms at rest) Date of Service: May 18, 2024 Billing Provider: MARCOS CHENG [facility] Cardiology Common Codes: [id number] CARE 30-74 MIN MARCOS CHENG [facility] May 18, 2024 20:19
[2024-05-18 21:00] VITALS: BP 134/74; PULSE 71; RESP 17; TEMP 97.9; O2SAT 95
[2024-05-18] MEDS: FUROSEMIDE 100 MG/10ML VIAL IV ONE (21:15)
[2024-05-18] MEDS: CARVEDILOL 3.125 MG TAB PO SCH (21:16)
[2024-05-18] MEDS: FAMOTIDINE 20 MG TAB PO SCH (21:16)
[2024-05-18] MEDS: ATORVASTATIN 20 MG TAB PO SCH (21:16)
[2024-05-18] MEDS: ENOXAPARIN SOD 100 MG/1 ML SYRINGE SC SCH (21:17)
[2024-05-18] MEDS ORDERED: APIXABAN 5 MG TAB PO SCH (22:00)
[2024-05-19] VITALS (8 sets, daily range): BP systolic 129–151; BP diastolic 79–94; PULSE 80–106; RESP 17–20; TEMP 97.7–98.3; O2SAT 93–97
[2024-05-19] MEDS: FUROSEMIDE 40 MG/4 ML VIAL IV SCH (05:11)
[2024-05-19 05:27] LABS: Basophils # (auto) 0.1 10 ^3/uL (0-0.2); Basophils % (auto) 0.8 % (0.0-2.0); Eosinophils # (auto) 0.2 10 ^3/uL (0-0.8); Eosinophils % (auto) 2.4 % (0.0-7.0); Hematocrit 39.6 % (36.0-46.0); Hemoglobin 12.9 g/dL (12.2-16.2); Lymphocytes # (auto) 1.5 10 ^3/uL (0.4-5.4); Lymphocytes % (auto) 16.1 % (10.0-50.0); Mean Corpuscular Hemoglobin 27.8 pg (28.0-32.0); Mean Corpuscular Hgb Conc. 32.6 g/dL (32.0-36.0); Mean Corpuscular Volume 85.2 fL (80.0-100.0); Monocytes # (auto) 0.9 10 ^3/uL (0-1.3); Monocytes % (auto) 9.3 % (0.0-12.0); Neutrophils # (auto) 6.5 10 ^3/uL (1.6-8.6); Neutrophils % (auto) 71.4 % (37.0-80.0); Platelet Count (auto) 253 10^3/uL (140-450); Red Blood Cells 4.65 10^6/uL (4.0-5.20); Red Cell Distribution Width 15.6 % (11.8-14.3); White Blood Cell 9.1 10^3/uL (4.4-10.8)
[2024-05-19 05:47] LABS: Alanine Aminotransferase 17 U/L (7-40); Albumin 4.4 g/dL (3.2-4.8); Alkaline Phosphatase 60 U/L (46-116); Anion Gap 10 (5-15); Aspartate Aminotransferase 16 U/L (13-40); BUN/Creatinine Ratio 12.7 (10.0-20.0); Blood Urea Nitrogen 13 mg/dL (9-23); Calcium 9.9 mg/dL (8.7-10.4); Carbon Dioxide 29 mmol/L (20-31); Chloride 103 mmol/L (98-107); Glucose 101 mg/dL (74-106); LDL Cholesterol 88 mg/dL (< 100); Magnesium 2.2 mg/dL (1.6-2.6); Potassium 3.8 mmol/L (3.5-5.1); Sodium 142 mmol/L (136-145); Triglycerides 87 mg/dL (< 150)
[2024-05-19 05:48] LABS: Cholesterol 127 mg/dL (< 200)
[2024-05-19 05:51] LABS: HDL Cholesterol 35 mg/dL (40-59)
[2024-05-19] MEDS: VALSARTAN 80 MG TAB PO SCH (09:53)
[2024-05-19] MEDS: ASPirin 81 mg TAB PO SCH (09:54)
[2024-05-19] MEDS: cefTRIAXone 1GM/50ML D5W 50 ML IV SCH (09:54)
[2024-05-19] MEDS: SPIRONOLACTONE 25 MG TAB PO SCH (09:54)
[2024-05-19] MEDS: EMPAGLIFLOZIN 10 MG TAB PO SCH (09:54)
--- NOTE | 2024-05-19 13:19 | DVHPN2 ---
Consult Progress Note Subjective Other Systems: Patient remains in atrial fibrillation with rate in the low 100s Objective vital signs Vital Sign Date Time Temp Pulse Resp B/P (MAP) Pulse Ox O2 Delivery O2 Flow Rate FiO2 05/19/24 12:28 98.0 102 20 143/94 (110) 94 98.0 05/18/24 20:00 Nasal Cannula* 2 28 Total Intake and Output 05/18/24 05/18/24 05/19/24 15:00 23:00 07:00 Intake Total 500 ml Balance 500 ml medications Current Medications Medications Dose Ordered Sig/Vishnu Route Start Time Stop Time Status Last Admin Dose Admin Ceftriaxone Sodium 50 ml @ 100 mls/hr DAILY@09 IV 05/19/24 09:00 05/19/24 09:54 100 MLS/HR Ondansetron HCl 4 mg Q4HP PRN IV 05/18/24 13:15 Acetaminophen 650 mg Q6HP PRN PO 05/18/24 13:15 Famotidine 20 mg BID PO 05/18/24 22:00 05/19/24 09:54 20 MG Enoxaparin Sodium 130 mg Q12HR SC 05/18/24 22:00 05/19/24 09:55 100 MG Furosemide 40 mg BIDD IV 05/19/24 06:00 05/19/24 05:11 40 MG Carvedilol 3.125 mg Q12HR PO 05/18/24 22:00 05/19/24 09:54 3.125 MG Valsartan 80 mg DAILY PO 05/19/24 10:00 05/19/24 09:53 80 MG Spironolactone 25 mg DAILY PO 05/19/24 10:00 05/19/24 09:54 25 MG Empaglifozin 10 mg DAILY PO 05/19/24 10:00 05/19/24 09:54 10 MG Hydralazine HCl 10 mg Q6HP PRN IV 05/18/24 20:00 Nitroglycerin 0.4 mg Q5MINP PRN SL 05/18/24 20:00 Morphine Sulfate 2 mg Q30M PRN IV 05/18/24 20:00 Atorvastatin Calcium 40 mg HS PO 05/18/24 22:00 05/18/24 21:16 40 MG Aspirin 81 mg DAILY PO 05/19/24 10:00 05/19/24 09:54 81 MG Examination: GENERAL:Normal, LUNGS:Normal, CVS:Normal, NEURO:Normal laboratory and microbiology Laboratory Tests 05/19/24 04:55 Test 05/19/24 04:55 Range/Units Serum Glucose 101 74-106 mg/dL Problem List/Assessment/Plan Problem List/Assessment/Plan Unspecified atrial fibrillation with rapid ventricular rate, newly diagnosed (on Eliquis) Acute on chronic decompensated HFrEF, newly diagnosed, NYHA Class IV Rule out coronary artery disease Hypertension, newly diagnosed Dyslipidemia Remote history of tobacco use Morbid obesity Plan/Recommendation (Dr. Link) Transthoracic echocardiogram from 05/02/2024 revealed LVEF 25-30% with global hypokinesis, normal RV function, biatrial enlargement, and mild LV enlargement. Continue on GDMT for HFrEF, uptitrate as tolerated. Continue preload and afterload reduction, strict I&Os, fluid restriction, and daily weight. Transition from Eliquis therapy to therapeutic Lovenox while inpatient ([id number]- VASc Score: 4 points. HAS-BLED Score: 2 points). Pending improvement on respiratory status, tentatively scheduled for cardiac catheterization and coronary angiogram for ischemic work-up on 05/22/2024. Monitor ECG changes closely and notify. Continue chest pain protocol. Continue with close cardiac surveillance. Thank you for allowing us to participate in this patient's care. Please call if you have any questions or concerns. This medical document was created using an electronic medical record system with voice recognition software and computerized dictation system. Although this document has been carefully reviewed, there might still be some phonetic and typographical errors. Occasional wrong-word or ``sound-alike substitutions may have occurred due to the inherent limitations of voice recognition software. These areas are purely typographical due to imperfections of the software programs and do not reflect any compromise in the patient's medical care. Please read the chart carefully and recognize, using context, where these substitutions have occurred. Plan discussed with: Patient Date of Service: May 19, 2024 Billing Provider: SUSU ARCHULETA Common Visit Codes: [id number] INP/OBS CARE(HIGH) SUSU ARCHULETA May 19, 2024 13:19
[2024-05-19] MEDS: ACETAMINOPHEN 325 MG TAB PO PRN (22:08)
--- NOTE | 2024-05-19 23:09 | DVHPN2 ---
Subjective The patient is seen and examined at bedside. Still complain of shortness for breath. Reviewed: Care Plan, H&P, Labs, Medications, Previous Orders, Radiology Changes from previous H/P or p: No Changes Respiratory: Shortness of breath Objective Vitals Vital Signs Date Time Temp Pulse Resp B/P (MAP) Pulse Ox O2 Delivery O2 Flow Rate FiO2 05/19/24 22:07 92 143/86 05/19/24 17:08 98.3 18 93 98.3 05/19/24 08:00 Nasal Cannula* 2 28 Intake/Output Intake and Output 05/19/24 07:00 Intake Total 500 ml Balance 500 ml Intake Oral 500 ml # Voids 4 General Appearance: Alert, Oriented X3, Cooperative, No acute distress HEENT: Atraumatic, PERRLA, EOMI, Mucous membr. moist/pink Neck: Supple Lungs: Clear to auscultation, Normal air movement Cardiovascular: Regular rate, Normal S1, Normal S2, No murmurs, Gallops, Rubs Abdomen: Normal bowel sounds, Soft, No tenderness Neuro: Cranial nerves 3-12 NL Psych/Mental Status: Mental status NL Medications Current Medications Medications Dose Ordered Sig/Visnhu Route Start Time Stop Time Status Last Admin Dose Admin Ceftriaxone Sodium 50 ml @ 100 mls/hr DAILY@09 IV 05/19/24 09:00 05/19/24 09:54 100 MLS/HR Ondansetron HCl 4 mg Q4HP PRN IV 05/18/24 13:15 Acetaminophen 650 mg Q6HP PRN PO 05/18/24 13:15 05/19/24 22:08 650 MG Famotidine 20 mg BID PO 05/18/24 22:00 05/19/24 22:07 20 MG Enoxaparin Sodium 130 mg Q12HR SC 05/18/24 22:00 05/19/24 22:09 130 MG Furosemide 40 mg BIDD IV 05/19/24 06:00 05/19/24 19:22 40 MG Carvedilol 3.125 mg Q12HR PO 05/18/24 22:00 05/19/24 22:07 3.125 MG Valsartan 80 mg DAILY PO 05/19/24 10:00 05/19/24 09:53 80 MG Spironolactone 25 mg DAILY PO 05/19/24 10:00 05/19/24 09:54 25 MG Empaglifozin 10 mg DAILY PO 05/19/24 10:00 05/19/24 09:54 10 MG Hydralazine HCl 10 mg Q6HP PRN IV 05/18/24 20:00 Nitroglycerin 0.4 mg Q5MINP PRN SL 05/18/24 20:00 Morphine Sulfate 2 mg Q30M PRN IV 05/18/24 20:00 Atorvastatin Calcium 40 mg HS PO 05/18/24 22:00 05/19/24 22:06 40 MG Aspirin 81 mg DAILY PO 05/19/24 10:00 05/19/24 09:54 81 MG Laboratory Results Laboratory Tests 05/19/24 04:55 Chemistry Test 05/19/24 04:55 Albumin 4.4 g/dL (3.2-4.8) Calcium Level 9.9 mg/dL (8.7-10.4) Magnesium Level 2.2 mg/dL (1.6-2.6) Total Protein 7.0 g/dL (5.7-8.2) Lipid panel Test 05/19/24 04:55 Cholesterol Level 127 mg/dL (< 200) HDL Cholesterol 35 mg/dL (40-59) L Triglycerides Level 87 mg/dL (< 150) LFT Test 05/19/24 04:55 Alanine Aminotransferase (ALT) 17 U/L (7-40) Alkaline Phosphatase 60 U/L (46-116) Aspartate Amino Transferase (AST) 16 U/L (13-40) Total Bilirubin 1.0 mg/dL (0.2-1.0) HgA1c, TSH Test 05/19/24 04:55 Hemoglobin A1c 5.6 % A1C (<5.7) Labs and/or images reviewed: Labs reviewed by me Assessment/Plan Assessment/Plan Dyspnea Acute heart failure Probable pneumonia Cardiomegaly Obesity Hyperbilirubinemia History of AFib on Eliquis Plan Continuing current management. Continuing with Lasix. Waiting for human resources operations manager to see the patient. This medical document was created using an electronic medical record system with M[employer] direct computerized dictation system. Although this document has been carefully reviewed, there may still be some phonetic and typographical errors. These areas are purely typographical due to imperfections of the software programs, and do not reflect any compromise in the patient's medical care. Plan discussed with: Patient Date of Service: May 19, 2024 Billing Provider: TORREY MULLIGAN MD Common Visit Codes: [id number] INP/OBS CARE(HIGH) TORREY MULLIGAN MD May 19, 2024 23:09
[2024-05-20] VITALS (8 sets, daily range): BP systolic 105–145; BP diastolic 74–86; PULSE 77–110; RESP 18–20; TEMP 97.5–98.1; O2SAT 92–96
[2024-05-20 08:23] LABS: Anion Gap 11 (5-15); Carbon Dioxide 30 mmol/L (20-31); Chloride 102 mmol/L (98-107); Potassium 3.7 mmol/L (3.5-5.1); Sodium 143 mmol/L (136-145)
[2024-05-20 08:26] LABS: Basophils # (auto) 0.1 10 ^3/uL (0-0.2); Basophils % (auto) 0.8 % (0.0-2.0); Eosinophils # (auto) 0.3 10 ^3/uL (0-0.8); Eosinophils % (auto) 3.3 % (0.0-7.0); Lymphocytes # (auto) 1.5 10 ^3/uL (0.4-5.4); Lymphocytes % (auto) 18.3 % (10.0-50.0); Mean Corpuscular Hemoglobin 27.8 pg (28.0-32.0); Mean Corpuscular Hgb Conc. 32.6 g/dL (32.0-36.0); Mean Corpuscular Volume 85.4 fL (80.0-100.0); Monocytes # (auto) 0.8 10 ^3/uL (0-1.3); Monocytes % (auto) 9.8 % (0.0-12.0); Neutrophils # (auto) 5.6 10 ^3/uL (1.6-8.6); Neutrophils % (auto) 67.8 % (37.0-80.0); Nucleated Red Blood Cells % 0.1 %; Platelet Count (auto) 266 10^3/uL (140-450); Red Blood Cells 5.03 10^6/uL (4.0-5.20); Red Cell Distribution Width 15.6 % (11.8-14.3); White Blood Cell 8.3 10^3/uL (4.4-10.8)
[2024-05-20 08:29] LABS: BUN/Creatinine Ratio 18.4 (10.0-20.0); Blood Urea Nitrogen 19 mg/dL (9-23); Glucose 92 mg/dL (74-106)
[2024-05-20] MEDS ORDERED: LABETALOL HCL 20 MG/4 ML VL IV PRN (12:30)
--- NOTE | 2024-05-20 12:35 | DVHPN2 ---
Progress Note Date Seen: May 20, 2024 Medical Necessity Reason Pt with a Central, PICC or Fol: No Subjective Patient reports: No new complaints Review of Systems: HEENT:Normal, CVS:Normal, RESPIRATORY:Normal, GI:Normal, :Normal, MSK:Normal, NEURO:Normal Objective vital signs Vital Sign Date Time Temp Pulse Resp B/P (MAP) Pulse Ox O2 Delivery O2 Flow Rate FiO2 05/20/24 11:16 123/85 05/20/24 11:16 89 05/20/24 09:00 97.7 18 92 97.7 05/19/24 20:00 Nasal Cannula* 2 28 Total Intake and Output 05/19/24 05/19/24 05/20/24 15:00 23:00 07:00 Intake Total 710 ml 200 ml Output Total 400 ml 1700 ml Balance 310 ml -1500 ml medications Current Medications Medications Dose Ordered Sig/Vishnu Route Start Time Stop Time Status Last Admin Dose Admin Ceftriaxone Sodium 50 ml @ 100 mls/hr DAILY@09 IV 05/19/24 09:00 05/20/24 11:13 100 MLS/HR Ondansetron HCl 4 mg Q4HP PRN IV 05/18/24 13:15 Acetaminophen 650 mg Q6HP PRN PO 05/18/24 13:15 05/20/24 11:14 650 MG Famotidine 20 mg BID PO 05/18/24 22:00 05/20/24 11:15 20 MG Enoxaparin Sodium 130 mg Q12HR SC 05/18/24 22:00 05/20/24 10:00 130 MG Furosemide 40 mg BIDD IV 05/19/24 06:00 05/20/24 06:34 40 MG Carvedilol 3.125 mg Q12HR PO 05/18/24 22:00 05/20/24 11:16 3.125 MG Valsartan 80 mg DAILY PO 05/19/24 10:00 05/20/24 11:16 80 MG Spironolactone 25 mg DAILY PO 05/19/24 10:00 05/20/24 11:15 25 MG Empaglifozin 10 mg DAILY PO 05/19/24 10:00 05/20/24 11:14 10 MG Hydralazine HCl 10 mg Q6HP PRN IV 05/18/24 20:00 Nitroglycerin 0.4 mg Q5MINP PRN SL 05/18/24 20:00 Morphine Sulfate 2 mg Q30M PRN IV 05/18/24 20:00 Atorvastatin Calcium 40 mg HS PO 05/18/24 22:00 05/19/24 22:06 40 MG Aspirin 81 mg DAILY PO 05/19/24 10:00 05/20/24 11:14 81 MG Examination: GENERAL:Normal, HEENT:Normal, NECK:Normal, LUNGS:Normal, CVS:Normal, ABDOMEN:Normal, MSK:Normal, SKIN:Normal, NEURO:Normal, :Normal laboratory and microbiology Laboratory Tests 05/20/24 06:30 Test 05/20/24 06:30 Range/Units Serum Glucose 92 74-106 mg/dL Problem List/Assessment/Plan Problem List/Assessment/Plan #1 acute resp failure: cont oxygen #2 acute systolic/diastolic heart failure: lasix iv #3 ?cad: c angio planned #4 obesity #5 a fib: on lovenox advance care planning- full code- time spent 21 mins Plan discussed with: Patient My Orders My Orders Orders - JAZMYN PANIAGUA MD Procedure Category Date Status Time Furosemide Injection PHA 05/21/24 Transmitted (Lasix Injection) 07:00 Labetalol Hcl PHA 05/20/24 Transmitted (Labetalol Hcl) 12:30 Urinalysis LAB 05/20/24 Uncollected 12:29 Basic Metabolic Panel LAB 05/21/24 Verified 06:00 Magnesium LAB 05/21/24 Verified 05:00 Date of Service: May 20, 2024 Billing Provider: JAZMYN PANIAGUA MD Common Visit Codes: [id number] INP/OBS CARE(HIGH) Secondary Visit Codes: [id number] CARE PLAN 30 MINUTES JAZMYN PANIAGUA MD May 20, 2024 12:35
--- NOTE | 2024-05-20 13:26 | DVHPN2 ---
Consult Progress Note Subjective Other Systems: Patient remains in atrial fibrillation with controlled rate on supervisor pressing department at time of assessment. Patient denies any cardiac symptoms Objective vital signs Vital Sign Date Time Temp Pulse Resp B/P (MAP) Pulse Ox O2 Delivery O2 Flow Rate FiO2 05/20/24 13:00 97.6 98 18 120/86 (97) 92 97.6 05/19/24 20:00 Nasal Cannula* 2 28 Total Intake and Output 05/19/24 05/19/24 05/20/24 15:00 23:00 07:00 Intake Total 710 ml 200 ml Output Total 400 ml 1700 ml Balance 310 ml -1500 ml medications Current Medications Medications Dose Ordered Sig/Vishnu Route Start Time Stop Time Status Last Admin Dose Admin Ondansetron HCl 4 mg Q4HP PRN IV 05/18/24 13:15 Acetaminophen 650 mg Q6HP PRN PO 05/18/24 13:15 05/20/24 11:14 650 MG Famotidine 20 mg BID PO 05/18/24 22:00 05/20/24 11:15 20 MG Enoxaparin Sodium 130 mg Q12HR SC 05/18/24 22:00 05/20/24 10:00 130 MG Carvedilol 3.125 mg Q12HR PO 05/18/24 22:00 05/20/24 11:16 3.125 MG Valsartan 80 mg DAILY PO 05/19/24 10:00 05/20/24 11:16 80 MG Spironolactone 25 mg DAILY PO 05/19/24 10:00 05/20/24 11:15 25 MG Empaglifozin 10 mg DAILY PO 05/19/24 10:00 05/20/24 11:14 10 MG Nitroglycerin 0.4 mg Q5MINP PRN SL 05/18/24 20:00 Morphine Sulfate 2 mg Q30M PRN IV 05/18/24 20:00 Atorvastatin Calcium 40 mg HS PO 05/18/24 22:00 05/19/24 22:06 40 MG Aspirin 81 mg DAILY PO 05/19/24 10:00 05/20/24 11:14 81 MG Furosemide 40 mg QAM IV 05/21/24 07:00 Labetalol HCl 10 mg Q4HP PRN IV 05/20/24 12:30 Examination: GENERAL:Normal, LUNGS:Normal, CVS:Normal, NEURO:Normal laboratory and microbiology Laboratory Tests 05/20/24 06:30 Test 05/20/24 06:30 Range/Units Serum Glucose 92 74-106 mg/dL Problem List/Assessment/Plan Problem List/Assessment/Plan Unspecified atrial fibrillation with rapid ventricular rate, newly diagnosed (on Eliquis) Acute on chronic decompensated HFrEF, newly diagnosed, NYHA Class IV Rule out coronary artery disease Hypertension, newly diagnosed Dyslipidemia Remote history of tobacco use Morbid obesity Plan/Recommendation (Dr. Link) Transthoracic echocardiogram from 05/02/2024 revealed LVEF 25-30% with global hypokinesis, normal RV function, biatrial enlargement, and mild LV enlargement. Continue on GDMT for HFrEF, uptitrate as tolerated. Continue preload and afterload reduction, strict I&Os, fluid restriction, and daily weight. Transition from Eliquis therapy to therapeutic Lovenox while inpatient ([id number]- VASc Score: 4 points. HAS-BLED Score: 2 points). Pending improvement on respiratory status, tentatively scheduled for cardiac catheterization and coronary angiogram for ischemic work-up on 05/22/2024. Monitor ECG changes closely and notify. Continue chest pain protocol. Continue with close cardiac surveillance. Thank you for allowing us to participate in this patient's care. Please call if you have any questions or concerns. This medical document was created using an electronic medical record system with voice recognition software and computerized dictation system. Although this document has been carefully reviewed, there might still be some phonetic and typographical errors. Occasional wrong-word or ``sound-alike substitutions may have occurred due to the inherent limitations of voice recognition software. These areas are purely typographical due to imperfections of the software programs and do not reflect any compromise in the patient's medical care. Please read the chart carefully and recognize, using context, where these substitutions have occurred. Plan discussed with: Patient Date of Service: May 20, 2024 Billing Provider: SUSU ARCHULETA Common Visit Codes: [id number] INP/OBS CARE(HIGH) SUSU ARCHULETA May 20, 2024 13:26
[2024-05-20 18:21] LABS: Urine Bacteria None Seen /hpf (None Seen)
[2024-05-20 18:51] LABS: Urine Blood Negative /uL (Negative); Urine Clarity Clear (Clear); Urine Color Yellow (Yellow); Urine Mucus FEW (None Seen); Urine Protein, UAD TRACE (Negative); Urine Specific Gravity 1.031 (1.001-1.035); Urine Squamous Epithelial Cell FEW /hpf (<5); Urine Urobilinogen Normal (Negative); Urine WBC 1 /HPF (0-5)
[2024-05-21] VITALS (7 sets, daily range): BP systolic 114–138; BP diastolic 51–81; PULSE 66–117; RESP 16–19; TEMP 97.4–98.2; O2SAT 90–95
[2024-05-21] MEDS: FUROSEMIDE 40 MG/4 ML VIAL IV SCH (07:01)
[2024-05-21 09:52] LABS: Anion Gap 9 (5-15); Carbon Dioxide 31 mmol/L (20-31); Chloride 101 mmol/L (98-107); Potassium 3.8 mmol/L (3.5-5.1); Sodium 141 mmol/L (136-145)
[2024-05-21 09:53] LABS: Calcium 10.1 mg/dL (8.7-10.4)
[2024-05-21 09:58] LABS: Blood Urea Nitrogen 21 mg/dL (9-23); Glucose 89 mg/dL (74-106); Magnesium 2.2 mg/dL (1.6-2.6)
--- NOTE | 2024-05-21 10:09 | DVHPN2 ---
Consult Progress Note Subjective Patient reports: Feels better Other Systems: The patient remains in atrial fibrillation on color television console monitor Objective vital signs Vital Sign Date Time Temp Pulse Resp B/P (MAP) Pulse Ox O2 Delivery O2 Flow Rate FiO2 05/21/24 08:00 78 16 Nasal Cannula* 2 28 05/21/24 07:01 137/83 05/21/24 05:00 97.9 94 97.9 Total Intake and Output 05/20/24 05/20/24 05/21/24 15:00 23:00 07:00 Intake Total 600 ml 450 ml Output Total 1200 ml Balance -600 ml 450 ml medications Current Medications Medications Dose Ordered Sig/Vishnu Route Start Time Stop Time Status Last Admin Dose Admin Ondansetron HCl 4 mg Q4HP PRN IV 05/18/24 13:15 Acetaminophen 650 mg Q6HP PRN PO 05/18/24 13:15 05/20/24 11:14 650 MG Famotidine 20 mg BID PO 05/18/24 22:00 05/20/24 22:04 20 MG Enoxaparin Sodium 130 mg Q12HR SC 05/18/24 22:00 05/20/24 22:04 130 MG Carvedilol 3.125 mg Q12HR PO 05/18/24 22:00 05/20/24 22:04 3.125 MG Valsartan 80 mg DAILY PO 05/19/24 10:00 05/20/24 11:16 80 MG Spironolactone 25 mg DAILY PO 05/19/24 10:00 05/20/24 11:15 25 MG Empaglifozin 10 mg DAILY PO 05/19/24 10:00 05/20/24 11:14 10 MG Nitroglycerin 0.4 mg Q5MINP PRN SL 05/18/24 20:00 Morphine Sulfate 2 mg Q30M PRN IV 05/18/24 20:00 Atorvastatin Calcium 40 mg HS PO 05/18/24 22:00 05/20/24 22:04 40 MG Aspirin 81 mg DAILY PO 05/19/24 10:00 05/20/24 11:14 81 MG Furosemide 40 mg QAM IV 05/21/24 07:00 05/21/24 07:01 40 MG Labetalol HCl 10 mg Q4HP PRN IV 05/20/24 12:30 Examination: GENERAL:Normal, LUNGS:Normal, CVS:Normal, NEURO:Normal laboratory and microbiology Laboratory Tests 05/21/24 09:26 05/20/24 06:30 Test 05/21/24 09:26 Range/Units Serum Glucose 89 74-106 mg/dL Problem List/Assessment/Plan Problem List/Assessment/Plan Unspecified atrial fibrillation with rapid ventricular rate, newly diagnosed (on Eliquis) Acute on chronic decompensated HFrEF, newly diagnosed, NYHA Class IV Rule out coronary artery disease Hypertension, newly diagnosed Dyslipidemia Remote history of tobacco use Morbid obesity Plan/Recommendation (Dr. Link) Case discussed with . Transthoracic echocardiogram from 05/02/2024 revealed LVEF 25-30% with global hypokinesis, normal RV function, biatrial enlargement, and mild LV enlargement. Continue on GDMT for HFrEF, uptitrate as tolerated. Continue preload and afterload reduction, strict I&Os, fluid restriction, and daily weight. Transition from Eliquis therapy to therapeutic Lovenox while inpatient for pending procedure ([id number] Score: 4 points. HAS-BLED Score: 2 points). The patient has been scheduled for cardiac catheterization and coronary angiogram for ischemic work-up on 05/22/[address] Link. The procedure was discussed with the patient in full detail including risks and benefits. Risks include but are not limited to bleeding, contrast- induced nephropathy, stroke, and even . The patient understands and is agreeable to undergo the procedure. Monitor ECG changes closely and notify. Continue chest pain protocol. Continue with close cardiac surveillance. Thank you for allowing us to participate in this patient's care. Please call if you have any questions or concerns. This medical document was created using an electronic medical record system with voice recognition software and computerized dictation system. Although this document has been carefully reviewed, there might still be some phonetic and typographical errors. Occasional wrong-word or ``sound-alike substitutions may have occurred due to the inherent limitations of voice recognition software. These areas are purely typographical due to imperfections of the software programs and do not reflect any compromise in the patient's medical care. Please read the chart carefully and recognize, using context, where these substitutions have occurred. Plan discussed with: Patient Date of Service: May 21, 2024 Billing Provider: SUSU ARCHULETA Common Visit Codes: [id number] INP/OBS CARE(HIGH) SUSU ARCHULETA [facility] May 21, 2024 10:09
--- NOTE | 2024-05-21 11:28 | DVHPN2 ---
Progress Note Date Seen: May 21, 2024 Medical Necessity Reason Pt with a Central, PICC or Fol: No Subjective Patient reports: No new complaints Review of Systems: HEENT:Normal, CVS:Normal, RESPIRATORY:Normal, GI:Normal, :Normal, MSK:Normal, NEURO:Normal Objective vital signs Vital Sign Date Time Temp Pulse Resp B/P (MAP) Pulse Ox O2 Delivery O2 Flow Rate FiO2 05/21/24 10:37 120/85 05/21/24 10:36 94 05/21/24 08:00 16 Nasal Cannula* 2 28 05/21/24 05:00 97.9 94 97.9 Total Intake and Output 05/20/24 05/20/24 05/21/24 15:00 23:00 07:00 Intake Total 600 ml 450 ml Output Total 1200 ml Balance -600 ml 450 ml medications Current Medications Medications Dose Ordered Sig/Vishnu Route Start Time Stop Time Status Last Admin Dose Admin Ondansetron HCl 4 mg Q4HP PRN IV 05/18/24 13:15 Acetaminophen 650 mg Q6HP PRN PO 05/18/24 13:15 05/21/24 10:35 650 MG Famotidine 20 mg BID PO 05/18/24 22:00 05/21/24 10:37 20 MG Enoxaparin Sodium 130 mg Q12HR SC 05/18/24 22:00 05/21/24 10:37 130 MG Carvedilol 3.125 mg Q12HR PO 05/18/24 22:00 05/21/24 10:36 3.125 MG Valsartan 80 mg DAILY PO 05/19/24 10:00 05/21/24 10:37 80 MG Spironolactone 25 mg DAILY PO 05/19/24 10:00 05/21/24 10:36 25 MG Empaglifozin 10 mg DAILY PO 05/19/24 10:00 05/21/24 10:35 10 MG Nitroglycerin 0.4 mg Q5MINP PRN SL 05/18/24 20:00 Morphine Sulfate 2 mg Q30M PRN IV 05/18/24 20:00 Atorvastatin Calcium 40 mg HS PO 05/18/24 22:00 05/20/24 22:04 40 MG Aspirin 81 mg DAILY PO 05/19/24 10:00 05/21/24 10:33 81 MG Furosemide 40 mg QAM IV 05/21/24 07:00 05/21/24 07:01 40 MG Labetalol HCl 10 mg Q4HP PRN IV 05/20/24 12:30 Examination: GENERAL:Normal, HEENT:Normal, NECK:Normal, LUNGS:Normal, CVS:Normal, ABDOMEN:Normal, MSK:Normal, SKIN:Normal, NEURO:Normal, :Normal laboratory and microbiology Laboratory Tests 05/21/24 09:26 05/20/24 06:30 Test 05/21/24 09:26 Range/Units Serum Glucose 89 74-106 mg/dL Problem List/Assessment/Plan Problem List/Assessment/Plan #1 acute resp failure: cont oxygen #2 acute systolic/diastolic heart failure: lasix iv #3 ?cad: c angio in am #4 obesity #5 a fib: on lovenox advance care planning- full code- time spent 21 mins Plan discussed with: Patient My Orders My Orders Orders - JAZMYN PANIAGUA MD Procedure Category Date Status Time Furosemide Injection PHA 05/21/24 In Process (Lasix Injection) 07:00 Labetalol Hcl PHA 05/20/24 In Process (Labetalol Hcl) 12:30 Urinalysis LAB 05/20/24 Uncollected 12:29 Dietary Evaluation Review Comments: Continue current plan of care Expected Outcomes/Goals: Pt will meet >75% estimated needs Fu 3-5 days Date of Service: May 21, 2024 Billing Provider: JAZMYN PANIAGUA MD Common Visit Codes: [id number] INP/OBS CARE(HIGH) JAZMYN PANIAGUA MD May 21, 2024 11:28
[2024-05-22] VITALS (12 sets, daily range): BP systolic 109–139; BP diastolic 61–85; PULSE 86–107; RESP 13–20; TEMP 97.6–98.1; O2SAT 95–97
[2024-05-22] MEDS: HEPARIN IN NS 1000Units/500mL 1,500 ML ONE (07:17)
[2024-05-22] MEDS: IODIXANOL 320MG/ML 100ML BTL IV ONE (07:17)
[2024-05-22 07:27] LABS: Anion Gap 13 (5-15); Carbon Dioxide 26 mmol/L (20-31); Chloride 104 mmol/L (98-107); Potassium 3.8 mmol/L (3.5-5.1); Sodium 143 mmol/L (136-145)
[2024-05-22 07:28] LABS: Calcium 10.1 mg/dL (8.7-10.4)
[2024-05-22 07:30] LABS: Basophils # (auto) 0.1 10 ^3/uL (0-0.2); Basophils % (auto) 0.7 % (0.0-2.0); Eosinophils # (auto) 0.2 10 ^3/uL (0-0.8); Eosinophils % (auto) 2.7 % (0.0-7.0); Hematocrit 46.1 % (36.0-46.0); Hemoglobin 14.8 g/dL (12.2-16.2); Lymphocytes # (auto) 1.1 10 ^3/uL (0.4-5.4); Lymphocytes % (auto) 14.6 % (10.0-50.0); Mean Corpuscular Hgb Conc. 32.1 g/dL (32.0-36.0); Mean Corpuscular Volume 87.1 fL (80.0-100.0); Monocytes # (auto) 0.8 10 ^3/uL (0-1.3); Monocytes % (auto) 10.8 % (0.0-12.0); Neutrophils # (auto) 5.5 10 ^3/uL (1.6-8.6); Neutrophils % (auto) 71.2 % (37.0-80.0); Nucleated Red Blood Cells % 0.1 %; Platelet Count (auto) 277 10^3/uL (140-450); Red Blood Cells 5.29 10^6/uL (4.0-5.20); Red Cell Distribution Width 15.5 % (11.8-14.3); White Blood Cell 7.7 10^3/uL (4.4-10.8)
[2024-05-22 07:34] LABS: Glucose 92 mg/dL (74-106)
[2024-05-22 07:57] LABS: BUN/Creatinine Ratio 28.4 (10.0-20.0)
[2024-05-22 08:04] LABS: Blood Urea Nitrogen 27 mg/dL (9-23)
[2024-05-22] MEDS: ANGIOMAX 250 MG VIAL IV ONE (08:46)
[2024-05-22] MEDS: fentaNYL CITRATE 100 MCG/2 ML VL ONE (08:46)
[2024-05-22] MEDS: LIDOCAINE 2%HCL (LOCAL ANESTH.) INJ 20ML MDV ONE (08:47)
[2024-05-22] MEDS: MIDAZOLAM HCL 2MG/2ML 2ml VIAL (1mg/ml) ONE (08:47)
[2024-05-22] MEDS: HEPARIN SODIUM (PORCINE) 5000 UNITS/ML 1ML VIAL ONE (08:56)
[2024-05-22] MEDS: VERAPAMIL 2.5MG/ML INJ 2ML VIAL IV ONE (08:56)
--- NOTE | 2024-05-22 10:11 | DVHOP2 ---
Operative Report - 2 Report Details Date: 05/22/24 Preop Diagnosis: CAD/cardiomyopathy Postop Diagnosis: Cardiomyopathy Surgeon: Reinier Link MD Anesthesiologist: Conscious sedation Anesthesia: Mac, Local (Versed and fentanyl were given. Monitor the patient throughout the procedure) Consent: The patient was informed of the risks and benefits of the procedure. These include but are not limited to complications of anesthesia, postoperative infection, incomplete relief of symptoms, recurrence of symptoms, damage to blood vessels, nerves and tendons, deep venous thrombosis, pulmonary embolism and possible need for repeat surgery in the future. Complications: No complications Estimated Blood Loss: 5 cc Findings: Cardiomyopathy Indications for Surgery: Chest pain. Cardiomyopathy Name of Procedure Performed Bilateral cine coronary angiography, left ventriculography, Procedure Details Procedure Details: Prior local anesthesia with 2% lidocaine to the right wrist and consent obtained under fluoroscopic and ultrasound guidance we placed a sheath into the radial artery and a Aron catheter was used for ventriculography cannulation of both right and left coronary ostia without complications. Hemodynamics aortic blood pressure was 110/70 end-diastolic pressure was five. There was no gradient across aortic valve on pullback. Coronary anatomy: The RCA is normal in its proximal mid and distal segments. The PDA and posterolateral branches are normal. Left main is large and normal. Left anterior descending coronary artery was normal. Diagonals and septals are free of significant disease. The circumflex has two obtuse marginal branches free of significant disease. Ventriculography in the KINCAID projection shows an ejection fraction of 30%. Impression: Normal left ventricular end-diastolic pressure. Decreased left vini tricular ejection fraction. Normal coronary arteries. Recommendations: Continue medical therapy. Risk factor modification. Condition Stable Disposition Still a Patient Date of Service: May 22, 2024 Billing Provider: REINIER LINK Sr., MD Cardiology Common Codes: [id number] INP/OBS CARE(Mod) Cardiology Procedure Codes: 71690-NSCI HEART CATH W/INTRA INJ REINIER LINK Sr., MD May 22, 2024 10:11
--- NOTE | 2024-05-22 11:26 | DVHDS2 ---
Discharge Summary Date of Admission May 18, 2024 at 13:14 Date of Discharge: May 22, 2024 Labs/Diagnostic Data: Laboratory Results Test 05/22/24 05:24 05/21/24 09:26 05/20/24 16:30 05/19/24 04:55 White Blood Count 7.7 10^3/uL (4.4-10.8) Red Blood Count 5.29 10^6/uL (4.0-5.20) Hemoglobin 14.8 g/dL (12.2-16.2) Hematocrit 46.1 % (36.0-46.0) Mean Corpuscular Volume 87.1 fL (80.0-100.0) Mean Corpuscular Hemoglobin 28.0 pg (28.0-32.0) Mean Corpuscular Hemoglobin Concent 32.1 g/dL (32.0-36.0) Red Cell Distribution Width 15.5 % (11.8-14.3) Platelet Count 277 10^3/uL (140-450) Mean Platelet Volume 8.3 fL (6.9-10.8) Neutrophils (%) (Auto) 71.2 % (37.0-80.0) Lymphocytes (%) (Auto) 14.6 % (10.0-50.0) Monocytes (%) (Auto) 10.8 % (0.0-12.0) Eosinophils (%) (Auto) 2.7 % (0.0-7.0) Basophils (%) (Auto) 0.7 % (0.0-2.0) Neutrophils # (Auto) 5.5 10 ^3/uL (1.6-8.6) Lymphocytes # (Auto) 1.1 10 ^3/uL (0.4-5.4) Monocytes # (Auto) 0.8 10 ^3/uL (0-1.3) Eosinophils # (Auto) 0.2 10 ^3/uL (0-0.8) Basophils # (Auto) 0.1 10 ^3/uL (0-0.2) Nucleated Red Blood Cells 0.1 % Sodium Level 143 mmol/L (136-145) Potassium Level 3.8 mmol/L (3.5-5.1) Chloride Level 104 mmol/L (98-107) Carbon Dioxide Level 26 mmol/L (20-31) Anion Gap 13 (5-15) Blood Urea Nitrogen 27 mg/dL (9-23) Creatinine 0.95 mg/dL (0.550-1.02) Glomerular Filtration Rate Calc 66 mL/min (>90) BUN/Creatinine Ratio 28.4 (10.0-20.0) Serum Glucose 92 mg/dL (74-106) Calcium Level 10.1 mg/dL (8.7-10.4) Magnesium Level 2.2 mg/dL (1.6-2.6) Urine Color Yellow (Yellow) Urine Clarity Clear (Clear) Urine pH 6.0 (5.0-9.0) Urine Specific [place] 1.031 (1.001-1.035) Urine Protein Trace (Negative) Urine Ketones Negative (Negative) Urine Blood Negative /uL (Negative) Urine Nitrite Negative (Negative) Urine Bilirubin Negative (Negative) Urine Urobilinogen Normal mg/dL (Negative) Urine Leukocyte Esterase Negative /uL (Negative) Urine RBC 2 /hpf (0 - 4) Urine Microscopic WBC 1 /HPF (0-5) Urine Squamous Epithelial Cells Few /hpf (<5) Urine Bacteria None seen /hpf (None Seen) Urine Mucus Few (None Seen) Urine Glucose 4+ mg/dL (Normal) Hemoglobin A1c 5.6 % A1C (<5.7) Total Bilirubin 1.0 mg/dL (0.2-1.0) Aspartate Amino Transferase (AST) 16 U/L (13-40) Alanine Aminotransferase (ALT) 17 U/L (7-40) Alkaline Phosphatase 60 U/L (46-116) Total Protein 7.0 g/dL (5.7-8.2) Albumin 4.4 g/dL (3.2-4.8) Triglycerides Level 87 mg/dL (< 150) Cholesterol Level 127 mg/dL (< 200) LDL Cholesterol 88 mg/dL (< 100) HDL Cholesterol 35 mg/dL (40-59) Test 05/18/24 10:20 05/18/24 09:22 Troponin I High Sensitivity 14 ng/L (</=34) Prothrombin Time 11.4 sec (9.3-11.8) Prothrombin Time INR 1.08 (0.9-1.15) D-Dimer, Quantitative 1.71 mg/L FEU (0.0-0.49) B-Type Natriuretic Peptide 311.15 pg/mL (0-100) Thyroid Stimulating Hormone (TSH) 3.89 uIU/mL (0.55-4.78) Other Laboratory Tests 05/22/24 05:24 Brief Hx & Hospital Course: see dictated note Condition at Discharge: Fair Final Diagnosis/Problems List chf Discharge Disposition: Home Discharge Instruct/Medications Diet: Cardiac 2g Na,low cholest Activity: No Restrictions, As Tolerated Follow Up/Referral: fu wiht pcp in 1 wkr Medications: resume home meds script to pharmacy Discharge Statement: "Patient was advised to return to the ER or call 911 if any headaches, dizziness, shortness of breath, chest pain, abdominal pain, bleeding, fevers, or worsening of medical condition. Patient was counseled about treatment plan, medications, possible side effects, patientverbalized understanding. All questions were answered to the best of my ability. This discharge took greater then 30 minutes in planning, reviewing documentation, counseling the patient, and discussing with other team members." ASSESSMENT ASSESSMENT Assessment chf Date of Service: May 22, 2024 Billing Provider: JAZMYN PANIAGUA MD Common Visit Codes: 87718-DTC/OBS DISCH DAY >30min JAZMYN PANIAGUA MD May 22, 2024 11:26
[2024-05-22] MEDS ORDERED: CARV-214 PO (11:29)
[2024-05-22] MEDS ORDERED: VALS1TAB57 PO (11:29)
[2024-05-22] MEDS ORDERED: FURO1TAB31 PO (11:29)
[2024-05-22] MEDS ORDERED: POTA-228 PO (11:29)
[2024-05-22] MEDS ORDERED: SPIR25TA PO (11:29)
--- NOTE | 2024-05-22 11:39 | DVHDS ---
DATE OF DISCHARGE: 05/22/2024 The patient is a 68-year-old lady who was admitted with history of increasing shortness of breath and lower extremity swelling. She has history of atrial fibrillation. HOSPITAL COURSE: The patient was noted to be in congestive heart failure. She was seen in Cardiology consult by Dr. Link. Recent echocardiogram done showed ejection fraction of 25%-30% with global hypokinesis. The patient underwent coronary angiography that showed no significant coronary artery disease. The patient is currently improved in her symptoms and will be discharged home to resume her home medications as well as to be on Coreg 3.125 mg p.o. b.i.d., Lasix 40 mg daily, potassium chloride 10 mEq p.o. daily, Aldactone 25 mg daily, and valsartan 80 mg daily. She will follow up with her primary care and radiation control specialist. The patient's blood pressure was elevated when she came to the hospital. FINAL DIAGNOSES: * [id number] systolic heart failure. * Acute respiratory failure. * Obesity. * Atrial fibrillation. * Hypertension. Time spent in discharge planning and review of plan with the patient and nursing was 38 minutes. MD MAIRA Montes/VINNIE TID: [id number] RECEIPT: [id number]
--- NOTE | 2024-05-22 12:28 | DVHPN2 ---
Consult Progress Note Date Seen: May 22, 2024 Subjective Review of Systems: CVS:Normal, RESPIRATORY:Normal, NEURO:Normal Objective vital signs Vital Sign Date Time Temp Pulse Resp B/P (MAP) Pulse Ox O2 Delivery O2 Flow Rate FiO2 05/22/24 11:50 93 121/79 05/22/24 11:00 98.1 96 98.1 05/22/24 09:00 18 05/21/24 20:00 Room Air* 0 21 Total Intake and Output 05/21/24 05/21/24 05/22/24 15:00 23:00 07:00 Intake Total 676 ml 230 ml Output Total 1451 ml 325 ml Balance -775 ml -95 ml medications Current Medications Medications Dose Ordered Sig/Vishnu Route Start Time Stop Time Status Last Admin Dose Admin Ondansetron HCl 4 mg Q4HP PRN IV 05/18/24 13:15 Acetaminophen 650 mg Q6HP PRN PO 05/18/24 13:15 05/21/24 10:35 650 MG Famotidine 20 mg BID PO 05/18/24 22:00 05/22/24 11:49 20 MG Enoxaparin Sodium 130 mg Q12HR SC 05/18/24 22:00 05/21/24 10:37 130 MG Carvedilol 3.125 mg Q12HR PO 05/18/24 22:00 05/22/24 11:50 3.125 MG Valsartan 80 mg DAILY PO 05/19/24 10:00 05/22/24 11:48 80 MG Spironolactone 25 mg DAILY PO 05/19/24 10:00 05/22/24 11:51 25 MG Empaglifozin 10 mg DAILY PO 05/19/24 10:00 05/22/24 11:50 10 MG Nitroglycerin 0.4 mg Q5MINP PRN SL 05/18/24 20:00 Morphine Sulfate 2 mg Q30M PRN IV 05/18/24 20:00 Atorvastatin Calcium 40 mg HS PO 05/18/24 22:00 05/21/24 22:29 40 MG Aspirin 81 mg DAILY PO 05/19/24 10:00 05/22/24 11:49 81 MG Furosemide 40 mg QAM IV 05/21/24 07:00 05/21/24 07:01 40 MG Labetalol HCl 10 mg Q4HP PRN IV 05/20/24 12:30 Examination: LUNGS:Normal, CVS:Normal (A-fib controlled rate), NEURO:Normal laboratory and microbiology Laboratory Tests 05/22/24 05:24 Test 05/22/24 05:24 Range/Units Serum Glucose 92 74-106 mg/dL Problem List/Assessment/Plan Problem List/Assessment/Plan Unspecified atrial fibrillation with rapid ventricular rate, newly diagnosed (on Eliquis) Acute on chronic decompensated HFrEF, newly diagnosed, NYHA Class IV Non-ischemic cardiomyopathy Hypertension, newly diagnosed Dyslipidemia Remote history of tobacco use Morbid obesity Plan/Recommendation (Dr. Link) Transthoracic echocardiogram from 05/02/2024 revealed LVEF 25-30% with global hypokinesis, normal RV function, biatrial enlargement, and mild LV enlargement. Cardiac catheterization revealed normal coronary arteries. Continue GDMT for HFrEF, uptitrate as tolerated. Re-establish Eliquis therapy ([id number] Score: 4 points. HAS-BLED Score: 2 points). Hold antiarrhythmics given unknown onset of a-fib. Follow-up with cardiology as scheduled in the outpatient setting on 06/11/24. If no improvement on left ventricular function with three months of medical therapy, the patient may qualify for an ICD. There is no further cardiac work-up indicated at this time. Kindly call if in need to re- conuslt. Thank you for allowing us to participate in this patient's care. This medical document was created using an electronic medical record system with voice recognition software and computerized dictation system. Although this document has been carefully reviewed, there might still be some phonetic and typographical errors. Occasional wrong-word or ``sound-alike substitutions may have occurred due to the inherent limitations of voice recognition software. These areas are purely typographical due to imperfections of the software programs and do not reflect any compromise in the patient's medical care. Please read the chart carefully and recognize, using context, where these substitutions have occurred. Plan discussed with: Patient, Other Dietary Evaluation Review Comments: Continue current plan of care Expected Outcomes/Goals: Pt will meet >75% estimated needs Fu 3-5 days Date of Service: May 22, 2024 Billing Provider: MARCOS CHENG Cardiology Common Codes: [id number] HOSP CARE([facility] MARCOS CHENG May 22, 2024 12:28
== END 2024-05-22 13:40 | disposition home or self-care (01) | DRG 286 ==
LOC: ER 08:56 → OVERFLOW 13:14 → TELE-WESTW 19:20
PROVIDERS: ADMIT Internal Medicine; ATTEND Internal Medicine
PROC: 4A023N7 Measurement of Cardiac Sampling and Pressure, Left Heart, Percutaneous Approach (ICD-10-PCS; principal; 2024-05-22)
PROC: B211YZZ Fluoroscopy of Multiple Coronary Arteries using Other Contrast (ICD-10-PCS; 2024-05-22)
PROC: B215YZZ Fluoroscopy of Left Heart using Other Contrast (ICD-10-PCS; 2024-05-22)
DX: I11.0 Hypertensive heart disease with heart failure (principal); I50.23 Acute on chronic systolic (congestive) heart failure; J96.00 Acute respiratory failure, unspecified whether with hypoxia or hypercapnia; I48.19 Other persistent atrial fibrillation; E66.01 Morbid (severe) obesity due to excess calories; E78.5 Hyperlipidemia, unspecified; K21.9 Gastro-esophageal reflux disease without esophagitis; I42.8 Other cardiomyopathies; E80.6 Other disorders of bilirubin metabolism; Z79.01 Long term (current) use of anticoagulants; Z79.899 Other long term (current) drug therapy; Z80.41 Family history of malignant neoplasm of ovary; Z80.1 Family history of malignant neoplasm of trachea, bronchus and lung; Z88.0 Allergy status to penicillin; Z87.891 Personal history of nicotine dependence; Z68.39 Body mass index [BMI] 39.0-39.9, adult
CPT/HCPCS: 36415; 71045; 71275; 80048; 80053; 80061; 81001; 83036; 83735; 83880; 84443; 84484; 85025; 85379; 85610; 93005; 93458; 96365; 96375; 99152; G0378; J2250; Q9967

== ENCOUNTER 2024-07-09 10:09 | Day surgery (SDC) | payer BC ==
[2024-07-05 15:20] LABS: Basophils # (auto) 0.1 10 ^3/uL (0-0.2); Basophils % (auto) 0.8 % (0.0-2.0); Eosinophils # (auto) 0.2 10 ^3/uL (0-0.8); Eosinophils % (auto) 2.3 % (0.0-7.0); Hematocrit 45.2 % (36.0-46.0); Hemoglobin 15.1 g/dL (12.2-16.2); Lymphocytes # (auto) 2.1 10 ^3/uL (0.4-5.4); Lymphocytes % (auto) 19.9 % (10.0-50.0); Mean Corpuscular Hemoglobin 27.9 pg (28.0-32.0); Mean Corpuscular Hgb Conc. 33.5 g/dL (32.0-36.0); Mean Corpuscular Volume 83.5 fL (80.0-100.0); Monocytes # (auto) 0.9 10 ^3/uL (0-1.3); Monocytes % (auto) 8.5 % (0.0-12.0); Neutrophils # (auto) 7.3 10 ^3/uL (1.6-8.6); Neutrophils % (auto) 68.5 % (37.0-80.0); Platelet Count (auto) 286 10^3/uL (140-450); Red Blood Cells 5.41 10^6/uL (4.0-5.20); Red Cell Distribution Width 15.2 % (11.8-14.3); White Blood Cell 10.7 10^3/uL (4.4-10.8)
[2024-07-05 15:35] LABS: INR 1.04 (0.9-1.15); Partial Thromboplastin Time 28.5 SEC (24.5-34.5)
[2024-07-05 15:58] LABS: Alanine Aminotransferase 16 U/L (7-40); Albumin 4.6 g/dL (3.2-4.8); Alkaline Phosphatase 79 U/L (46-116); Anion Gap 8 (5-15); Aspartate Aminotransferase 18 U/L (13-40); BUN/Creatinine Ratio 27.3 (10.0-20.0); Bilirubin, Total 0.4 mg/dL (0.2-1.0); Blood Urea Nitrogen 30 mg/dL (9-23); Calcium 10.5 mg/dL (8.7-10.4); Carbon Dioxide 26 mmol/L (20-31); Chloride 106 mmol/L (98-107); Glucose 101 mg/dL (74-106); Potassium 4.5 mmol/L (3.5-5.1); Sodium 140 mmol/L (136-145); Total Protein 7.7 g/dL (5.7-8.2)
[~2024-07-09] VITALS: Ht 180.3 cm; Wt 119.7 kg
[2024-07-09] VITALS (8 sets, daily range): BP systolic 100–112; BP diastolic 41–71; PULSE 56–62; RESP 12–16; O2SAT 98–100
[~2024-07-09 10:09] MED LIST changes: +APIX5TAB PO; +CARV6.2551 PO; -FAMO20TA10 PO; +FURO1TAB31 PO; +POTA-228 PO; +SPIR25TA PO; +VALS1TAB57 PO
[2024-07-09] MEDS: MIDAZOLAM HCL 2MG/2ML 2ml VIAL (1mg/ml) IV ONE (10:45)
[2024-07-09] MEDS: fentaNYL CITRATE 100 MCG/2 ML VL IV ONE (10:45)
[2024-07-09] MEDS: diphenhdrAMINE HCL 50 MG/1 ML VL ONE (12:41)
[2024-07-09] MEDS: AMIODARONE BOLUS KIT 100 ML IV ONE (13:36)
--- NOTE | 2024-07-12 08:16 | ECG ---
[facility] Test Date: 2024-07-09 Test Time: 12:52:55 Pat Name: RAFA SPANN Department: Room: Gender: F Forensics Analyst: CEASAR : 1955 Requested By: COLLIN SZYMANSKI Order Number: [id number] Reading MD: John Link Measurements Intervals [place] Rate: 54 P: 31 NC: 210 QRS: -31 QRSD: 64 T: 110 QT: 424 QTc: 402 Interpretive Statements Sinus bradycardia with 1st degree AV block with fusion complexes and premature atrial complexes Left axis deviation Low voltage QRS Possible Inferior infarct , age undetermined Anterolateral infarct , age undetermined Electronically Signed On 07-13-2024 20:50:15 PDT by John Link Please click the below link to view image of tracing.
--- NOTE | 2024-07-16 16:40 | DVHOP2 ---
Operative Report -Cardiology Report Details Date: 07/09/24 Preop Diagnosis: Atrial Fibrillation Postop Diagnosis: s/p Cardioversion Surgeon: Mo Szymanski MD Anesthesiologist: N/A Anesthesia: Mac Consent: The patient was informed of the risks and benefits of the procedure. These include but are not limited to complications of anesthesia, incomplete relief of symptoms, recurrence of symptoms, and pain. Name of Procedure Performed DC Cardioversion Procedure Details Procedure Details: The procedure was explained to the patient with risks and benefits including risk of stroke. Confirmed no gaps in intake of Eliquis including today and she understand to continue with dose tonight and continue. Patient received 1 mg of Versed and 25 mcg of fentanyl. The pads were in position in the anterior and lateral approach. With synchronized biphasic waveform at 200 J, one shock was successful in restoring sinus rhythm. The patient had some occasional PACs noticed. The patient had no immediate post-procedure complications. The rhythm w as maintained and 12-lead EKG was requested. Disposition Home Date of Service: July 09, 2024 Billing Provider: MO SZYMANSKI MD Cardiology Common Codes: PROCEDURE ONLY Cardiology Procedure Codes: 73917-KJ CARDIOVERSION Plan Additional comments: Plan discussed with patient at bedside. IV Amiodrone 150 gtt administered. Start PO Amiodarone, BID for 10 days followed by once daily. Follow up in clinic with echo in 1 month. MO SZYMANSKI MD July 16, 2024 16:40
== END 2024-07-09 15:10 | disposition home or self-care (01) ==
LOC: CATH 10:09
PROVIDERS: ATTEND Student in an Organized Health Care Education/Training Program
DX: I48.91 Unspecified atrial fibrillation (principal); I44.0 Atrioventricular block, first degree; Z79.899 Other long term (current) drug therapy; Z88.0 Allergy status to penicillin; Z91.018 Allergy to other foods
CPT/HCPCS: 36415; 80053; 85025; 85610; 85730; 92960; 93005; J1200; J2250; J3010; J7040; 99152

== ENCOUNTER → 2024-07-16 | Outpatient (CLI) | payer BC ==
[2024-07-16 09:35] LABS: Basophils # (auto) 0.1 10 ^3/uL (0-0.2); Basophils % (auto) 0.5 % (0.0-2.0); Eosinophils # (auto) 0.2 10 ^3/uL (0-0.8); Eosinophils % (auto) 2.2 % (0.0-7.0); Hematocrit 45.7 % (36.0-46.0); Hemoglobin 15.4 g/dL (12.2-16.2); Lymphocytes # (auto) 1.4 10 ^3/uL (0.4-5.4); Lymphocytes % (auto) 14.3 % (10.0-50.0); Mean Corpuscular Hemoglobin 28.1 pg (28.0-32.0); Mean Corpuscular Hgb Conc. 33.7 g/dL (32.0-36.0); Mean Corpuscular Volume 83.4 fL (80.0-100.0); Monocytes % (auto) 9.8 % (0.0-12.0); Neutrophils # (auto) 7.1 10 ^3/uL (1.6-8.6); Neutrophils % (auto) 73.2 % (37.0-80.0); Nucleated Red Blood Cells % 0.1 %; Platelet Count (auto) 297 10^3/uL (140-450); Red Blood Cells 5.49 10^6/uL (4.0-5.20); Red Cell Distribution Width 15.5 % (11.8-14.3); White Blood Cell 9.7 10^3/uL (4.4-10.8)
[2024-07-16 10:10] LABS: Alanine Aminotransferase 15 U/L (7-40); Albumin 4.6 g/dL (3.2-4.8); Alkaline Phosphatase 63 U/L (46-116); Anion Gap 9 (5-15); Aspartate Aminotransferase 20 U/L (13-40); BUN/Creatinine Ratio 30.1 (10.0-20.0); Bilirubin, Total 0.6 mg/dL (0.2-1.0); Carbon Dioxide 24 mmol/L (20-31); Chloride 105 mmol/L (98-107); Potassium 4.5 mmol/L (3.5-5.1); Sodium 138 mmol/L (136-145); Total Protein 7.7 g/dL (5.7-8.2)
[2024-07-16 10:11] LABS: Blood Urea Nitrogen 31 mg/dL (9-23); Calcium 10.5 mg/dL (8.7-10.4); Glucose 107 mg/dL (74-106)
== END | disposition home or self-care (01) ==
LOC: LAB 09:10
PROVIDERS: ATTEND Student in an Organized Health Care Education/Training Program
DX: I11.0 Hypertensive heart disease with heart failure (principal); I50.20 Unspecified systolic (congestive) heart failure; I48.19 Other persistent atrial fibrillation; I42.8 Other cardiomyopathies
CPT/HCPCS: 36415; 80053; 85025

== ENCOUNTER 2024-07-18 10:03 | Outpatient (CLI) | payer BC | END 2024-07-18 17:00 | disposition home or self-care (01) | LOC: LAB 10:03 | PROVIDERS: ATTEND Dermatology | DX: D48.3 Neoplasm of uncertain behavior of retroperitoneum (principal) ==

== ENCOUNTER 2024-08-07 13:48 | Outpatient (CLI) | payer BC | END 2024-08-07 17:00 | disposition home or self-care (01) | LOC: LAB 13:48 | PROVIDERS: ATTEND Nurse Practitioner Family | DX: E03.9 Hypothyroidism, unspecified (principal) | CPT/HCPCS: 36415; 84443 ==

== ENCOUNTER 2024-08-28 07:35 | Day surgery (SDC) | payer BC ==
[2024-08-26 14:48] LABS: Hematocrit 41.8 % (36.0-46.0); Hemoglobin 14.2 g/dL (12.2-16.2); Mean Corpuscular Hemoglobin 28.9 pg (28.0-32.0); Mean Corpuscular Volume 84.7 fL (80.0-100.0); Nucleated Red Blood Cells % 0.0 %
[2024-08-26 15:31] LABS: INR 1.06 (0.9-1.15); Partial Thromboplastin Time 28.5 SEC (24.5-34.5); Prothrombin Time 11.2 sec (9.3-11.8)
[2024-08-26 15:42] LABS: Alanine Aminotransferase 14 U/L (7-40); Albumin 4.7 g/dL (3.2-4.8); Alkaline Phosphatase 64 U/L (46-116); Anion Gap 9 (5-15); BUN/Creatinine Ratio 26.3 (10.0-20.0); Carbon Dioxide 26 mmol/L (20-31); Chloride 105 mmol/L (98-107); Glucose 97 mg/dL (74-106); Potassium 4.7 mmol/L (3.5-5.1); Sodium 140 mmol/L (136-145); Total Protein 7.5 g/dL (5.7-8.2)
[2024-08-26 15:43] LABS: Bilirubin, Total 0.6 mg/dL (0.2-1.0)
[2024-08-26 16:00] LABS: Blood Urea Nitrogen 36 mg/dL (9-23); Calcium 10.6 mg/dL (8.7-10.4)
[~2024-08-28] VITALS: Ht 180.3 cm; Wt 117.9 kg
[2024-08-28] VITALS (8 sets, daily range): BP systolic 90–105; BP diastolic 50–69; PULSE 52–55; RESP 11–18; TEMP 97.5; O2SAT 96–100
[~2024-08-28 07:35] MED LIST changes: +AMIO200T33 PO; -FURO1TAB31 PO; +FURO40TA4 PO; +LEVO25CA3 PO; -POTA-228 PO; +POTA-36 PO; -SPIR25TA PO; +SPIR25TA8 PO
[2024-08-28] MEDS ORDERED: fentaNYL CITRATE 100 MCG/2 ML VL IV ONE (08:00)
[2024-08-28] MEDS ORDERED: MIDAZOLAM HCL 2MG/2ML 2ml VIAL (1mg/ml) IV ONE (08:00)
[2024-08-28] MEDS ORDERED: LIDOCAINE VISCOUS 2% 15ML UD MT ONE (10:15)
[2024-08-28] MEDS ORDERED: LIDOCAINE VISCOUS 2% 15ML UD ONE (10:17)
--- NOTE | 2024-08-28 12:34 | DVHOP2 ---
Operative Report - 2 Report Details Date: 08/28/24 Preop Diagnosis: Atrial fibrillation Postop Diagnosis: S/P REINA/CARDIOVERSION Surgeon: Reinier Link MD Anesthesiologist: Conscious sedation Anesthesia: Mac, Local Consent: The patient was informed of the risks and benefits of the procedure. These include but are not limited to complications of anesthesia, postoperative infection, incomplete relief of symptoms, recurrence of symptoms, damage to blood vessels, nerves and tendons, deep venous thrombosis, pulmonary embolism and possible need for repeat surgery in the future. Complications: No complications Findings: Normal transesophageal echocardiogram Indications for Surgery: Atrial fibrillation Name of Procedure Performed Transesophageal echocardiogram and DC cardioversion. Procedure Details Procedure Details: Prior full informed consent obtained the patient was placed in the semi-Johansen and left lateral decubitus position. The transesophageal probe was passed without difficulty after patient gargling with lidocaine gel. Conscious sedation given. Standard views obtained. Transgastric views were also obtained. Transesophageal echocardiogram performed per protocol. Conclusions: Technically good study. Underlying atrial fibrillation. Left atrial enlargement. Mild concentric LVH. Valves appear to be structurally normal. Left ventricular systolic function is preserved. EF about 50% with normal RV function. Doppler reveals mild to moderate TR. [id number] MR. Small pericardial effusion not hemodynamically significant. No masses or vegetations. No atrial septal defect noted on Doppler. No thrombus noted in the left atrial appendage. No Doppler anomalies otherwise noted. We then proceeded to perform cardioversion. 2 mg of Versed and 50 fentanyl given in addition to the previous Versed and fentanyl given. The patient was appropriately sedated. A synchronized cardioversion was attempted at 50 joules with no success. We then increased of voltage two 100 joules. The patient converted to a sinus rhythm without much difficulty. Impression: Successful cardioversion post transesophageal echocardiography. Patient remained hemodynamically and neurologically stable throughout the process and post cardioversion. Recommendations: Continue current medical therapy and risk factor modification. Condition Good Disposition Home Date of Service: Aug 28, 2024 Billing Provider: REINIER LINK Sr., MD Cardiology Common Codes: 59941-[id number] INP/OBS CARE (High) Cardiology Procedure Codes: 72891-UX CARDIOVERSION, 85936-QEN W/IMG DOC INCL PROB ACQ REINIER LINK Sr., MD Aug 28, 2024 12:34
== END 2024-08-28 13:14 | disposition home or self-care (01) ==
LOC: CATH 07:35
PROVIDERS: ATTEND Internal Medicine
DX: I48.91 Unspecified atrial fibrillation (principal); I08.1 Rheumatic disorders of both mitral and tricuspid valves; I48.0 Paroxysmal atrial fibrillation; G47.9 Sleep disorder, unspecified; E66.9 Obesity, unspecified; Z68.39 Body mass index [BMI] 39.0-39.9, adult; Z79.01 Long term (current) use of anticoagulants; Z79.899 Other long term (current) drug therapy; Z88.0 Allergy status to penicillin
CPT/HCPCS: 36415; 80053; 85025; 85610; 85730; 92960; 93312; 93325; J2250; J3010; 99152

== ENCOUNTER 2024-12-03 07:25 | Outpatient (CLI) | payer BC ==
[2024-12-03 09:20] LABS: Free T4 (Free Thyroxine) 1.55 ng/dL (0.89-1.76)
== END 2024-12-03 17:00 | disposition home or self-care (01) ==
LOC: LAB 07:25
PROVIDERS: ATTEND Nurse Practitioner Family
DX: E03.9 Hypothyroidism, unspecified (principal)
CPT/HCPCS: 36415; 84439; 84443; 84480